=== PATIENT | female | born 1935 ===

== ENCOUNTER 2017-04-17 06:22 | Inpatient (IN) | payer MEDICARE, MEDICAID ==
[2017-04-17 06:22] VITALS: BMI 26.5
--- NOTE | 2017-04-17 06:43 | C.PDOC ---
History Of Present Illness 81 year old female presents to the ER with a complaint of pain to the left upper arm and lower back, associated with dysuria. Patient reports she fell 6 days ago, denies weakness or numbness. Chief Complaint (Nursing): Upper Extremity Problem/Injury History Per: Patient History/Exam Limitations: no limitations Onset/Duration Of Symptoms: Days Current Symptoms Are (Timing): Still Present Recent travel outside of the [place]: No Past Medical History Reviewed: Historical Data, Nursing Documentation, Vital Signs Vital Signs: Last Vital Signs Temp 97.8 F 04/17/17 06:29 Pulse 99 H 04/17/17 06:29 Resp 16 04/17/17 06:29 BP 209/82 H 04/17/17 06:29 Pulse Ox 100 04/17/17 06:48 - Medical History PMH: HTN Surgical History: No Surg Hx Family History: States: Unknown Family Hx - Social History Hx Alcohol Use: No Hx Substance Use: No - Immunization History Hx Tetanus Toxoid Vaccination: No Hx Influenza Vaccination: No Hx Pneumococcal Vaccination: No Review Of Systems Genitourinary: Positive for: Dysuria Musculoskeletal: Positive for: Arm Pain, Back Pain Neurological: Negative for: Weakness, Numbness Physical Exam - Physical Exam Appears: Non-toxic, No Acute Distress Skin: Normal Color, Warm, Dry Head: Atraumatic, Normacephalic Eye(s): bilateral: Normal Inspection Oral Mucosa: Moist Chest: Symmetrical, No Tenderness Cardiovascular: Rhythm Regular Respiratory: Normal Breath Sounds, No Accessory Muscle Use Gastrointestinal/Abdominal: Soft, No Tenderness Back: No Vertebral Tenderness, Paraspinal Tenderness (Lumbar and buttock area) Extremity: Tenderness (Left upper arm), No Deformity, Swelling (Left upper arm) Pulses: Left Radial: Normal, Right Radial: Normal Neurological/Psych: Oriented x3, Normal Speech, Normal Motor, Normal Sensation, Other (No focal deficits) ED Course And Treatment O2 Sat by Pulse Oximetry: 100 (Room air) Pulse Ox Interpretation: Normal Progress Note: LS spine x-ray, pelvis x-ray, urine culture, and urinalysis ordered. Disposition - Disposition Disposition Time: 07:00 Condition: STABLE Forms: [facility] ([place]) - Clinical Impression Clinical Impression: Lower back pain, Soft tissue injury of left upper arm - Scribe Statement The provider has reviewed the documentation as recorded by the Scribkristen Villatoro All medical record entries made by the Scribe were at my direction and personally dictated by me. I have reviewed the chart and agree that the record accurately reflects my personal performance of the history, physical exam, medical decision making, and the department course for this patient. I have also personally directed, reviewed, and agree with the discharge instructions and disposition.
[2017-04-17 08:33] LABS: RBC URINE 17 /hpf (0-3); URINE BACTERIA RARE (<OCC); URINE BILIRUBIN NEGATIVE (NEGATIVE); URINE BLOOD 1+ (NEGATIVE); URINE COLOR Yellow (YELLOW); URINE GLUCOSE (UA) NORMAL (Normal); URINE KETONE NEGATIVE (NEGATIVE); URINE LEUKOCYTE ESTERASE 2+ Leu/uL (Negative); URINE PROTEIN NEGATIVE (NEGATIVE); URINE UROBILINOGEN NORMAL mg/dL (0.2-1.0); WBC URINE 222 /hpf (0-5)
[2017-04-17] MEDS ORDERED: Sodium Chloride 0.9% 1,000 ML IV ONE (08:42)
[2017-04-17] MEDS ORDERED: cefTRIAXone IV 1 gm in Dextros 50 ML IV STA (08:44)
--- NOTE | 2017-04-17 09:13 | RAD ---
PROCEDURE: Radiographs of the Lumbar Spine. HISTORY: injury /pain COMPARISON: No prior. FINDINGS: BONES: Vertebral bodies are maintained in height. Transverse processes and posterior elements appear intact. There is grade 1 anterolisthesis at L5-S1. There is bilateral degenerative facet arthropathy at L5-S1. Normal alignment is maintained elsewhere. DISC SPACES: Unremarkable. OTHER FINDINGS: None. IMPRESSION: Grade 1 anterolisthesis at L5-S1 with bilateral degenerative facet arthropathy at L5-S1.
--- NOTE | 2017-04-17 09:14 | RAD ---
PROCEDURE: Radiographs of the pelvis. HISTORY: injury/ pain COMPARISON: None. FINDINGS: BONES: Pelvic Bones: There is suspected mildly displaced fracture of the left pubic symphysis and of the left inferior pubic ramus. Consider evaluation with computed tomography. No other fracture is identified. Hips: Grossly unremarkable. JOINTS: Sacroiliac Joints: Unremarkable. Pubic Symphysis: Unremarkable. OTHER FINDINGS: None. IMPRESSION: Suspected fracture left pubic symphysis and inferior pubic ramus. Consider further evaluation with computed tomography.
[2017-04-17] MEDS ORDERED: Sodium Chloride 0.9% 1,000 ML ONE (09:16)
--- NOTE | 2017-04-17 09:31 | RAD ---
PROCEDURE: CHEST RADIOGRAPH, 1 VIEW HISTORY: MED CLEAR COMPARISON: None available. FINDINGS: LUNGS: Clear. PLEURA: No pneumothorax or pleural fluid seen. CARDIOVASCULAR: Normal. OSSEOUS STRUCTURES: No significant abnormalities. VISUALIZED UPPER ABDOMEN: Normal. OTHER FINDINGS: None. IMPRESSION: No active disease.
[2017-04-17 09:34] LABS: BASO # 0.1 K/uL (0.0-0.2); BASO % 1.1 % (0.0-2.0); EOS # 0.1 K/uL (0.0-0.7); EOS % 0.9 % (0.0-4.0); HEMATOCRIT 32.1 % (34.0-47.0); LYMPH # 1.8 K/uL (1.0-4.3); LYMPH % 21.6 % (20.0-40.0); MEAN CELL VOLUME 87.4 fL (81.0-99.0); MEAN CORPUSCULAR HEMOGLOBIN 28.2 pg (27.0-31.0); MEAN CORPUSCULAR HGB CONC 32.3 g/dL (33.0-37.0); MONO # 0.6 K/uL (0.0-0.8); NRBC % 0.5 % (0.0-2.0); RED CELL DISTRIBUTION WIDTH 25.1 % (11.5-14.5); WHITE BLOOD COUNT 8.3 K/uL (4.8-10.8)
[2017-04-17 09:42] LABS: INR 1.1
[2017-04-17 09:55] LABS: BILIRUBIN,TOTAL 1.1 mg/dL (0.2-1.3); CALCIUM 8.5 mg/dl (8.6-10.4); GFR AFRICAN-AMERICAN > 60; GLUCOSE,RANDOM 91 mg/dL (65-105)
[2017-04-17 09:59] LABS: ALB/GLOB RATIO 1.1 (1.0-2.1); ALKALINE PHOSPHATASE 118 U/L (38-126); ALT/SGPT 33 U/L (9-52); AST/SGOT 55 U/L (14-36); BLOOD UREA NITROGEN 14 mg/dL (7-17); CARBON DIOXIDE 32 mmol/L (22-30); CHLORIDE 104 mmol/L (98-107); POTASSIUM 5.1 mmol/L (3.6-5.2); SODIUM 140 mmol/L (132-148)
--- NOTE | 2017-04-17 13:18 | CT ---
CT bony pelvis History: Pubic rami fractures. Comparison: X-ray dated 04/17/2017 Technique: Multiple contiguous axial images were performed through the bony pelvis without the use of intravenous contrast. Subsequently, sagittal and coronal reformatted images were obtained. Findings: Complex comminuted transverse oblique fracture deformity through the anterior superior left pubic bone near the pubic symphysis with superomedial distraction and displacement of a 1.9 centimeter fracture deformity at that level with some surrounding soft tissue swelling. Complex comminuted angulated fracture deformity of the mid inferior left pubic bone with angulation at the fracture site. Cortical irregularity with transverse oblique lucency seen at the inferior left iliac bone near the left SI joint as demonstrated on series 601 image 97 corresponding to series 5, image 29 concerning for a fracture deformity. More superiorly, at the level of the left SI joint, within the left iliac bone, there is an additional questionable cortical irregularity seen on series 601, image 89 also concerning for possible fracture deformity. Correlation with MRI is recommended for further evaluation if clinically indicated to better evaluate these regions. Patchy osteopenia in the left hemisacrum near the left SI joint. Subtle osseous injury at this level cannot entirely be excluded. Correlation with MRI may be helpful if clinically indicated. Prominent degenerative changes in the lower lumbar spine with prominent facet hypertrophy and sclerosis. Moderate degenerative changes of the bilateral hip joints with joint space narrowing and subchondral sclerosis. Partially calcified fibroid lesions noted within the uterus. Calcified phleboliths in the pelvis. Grade 1 anterolisthesis of L5 on S1. Bilateral hamstring origin tendinosis is noted. Impression: 1. Complex comminuted transverse oblique fracture deformity through the anterior superior left pubic bone near the pubic symphysis with superomedial distraction and displacement of a 1.9 centimeter fracture deformity at that level with some surrounding soft tissue swelling. 2. Complex comminuted angulated fracture deformity of the mid inferior left pubic bone with angulation at the fracture site. 3. Cortical irregularity with transverse oblique lucency seen at the inferior left iliac bone near the left SI joint as demonstrated on series 601 image 97 corresponding to series 5, image 29 concerning for a fracture deformity. More superiorly, at the level of the left SI joint, within the left iliac bone, there is additional questionable cortical irregularity seen on series 601, image 89 also concerning for possible fracture deformity. Correlation with MRI is recommended for further evaluation if clinically indicated to better evaluate these regions. 4. Patchy osteopenia in the left hemisacrum near the left SI joint. Subtle osseous injury at this level cannot entirely be excluded. Correlation with MRI may be helpful if clinically indicated. 5. Prominent degenerative changes in the lower lumbar spine with prominent facet hypertrophy and sclerosis. 6. Moderate degenerative changes of the bilateral hip joints with joint space narrowing and subchondral sclerosis. 7. Partially calcified fibroid lesions noted within the uterus. 8. Calcified phleboliths in the pelvis. 9. Grade 1 anterolisthesis of L5 on S1. 10. Bilateral hamstring origin tendinosis is noted.
--- NOTE | 2017-04-17 14:30 | CP.PCM.HP ---
History of Present Illness - History of Present Illness History of Present Illness: 81 year old female presents to the ER with a complaint of pain to the left upper arm and lower back, associated with dysuria. Patient reports she fell 6 days ago, denies weakness or numbness. Present on Admission - Present on Admission Any Indicators Present on Admission: No Review of Systems - Constitutional Constitutional: absent: As Per HPI, Anorexia, Chills, Daytime Sleepiness, Excessive Sweating, Fatigue, Fever, Frequent Falls, Headache, Increased Appetite , Lethargy, Malaise, Night Sweats, Snoring, Sleep Apnea, Weight Gain, Weight Loss, Weakness, Other - EENT Eyes: absent: As Per HPI, Blind Spots, Blurred Vision, Change in Vision, Decreased Night Vision, Diplopia, Discharge, Dry Eye, Exophthalmos, Floaters, Irritation, Itchy Eyes, Loss of Peripheral Vision, Pain, Photophobia, Requires Corrective Lenses, Sees Flashes, Spots in Vision, Tunnel Vision, Other Visual Disturbances, Loss of Vision, Other Nose/Mouth/Throat: absent: As Per HPI, Epistaxis, Nasal Congestion, Nasal Discharge, Nasal Obstruction, Nasal Trauma, Nose Pain, Post Nasal Drip, Sinus Pain, Sinus Pressure, Bleeding Gums, Change in Voice, Dental Pain, Dry Mouth, Dysphagia, Halitosis, Hoarsness, Lip Swelling, Mouth Lesions, Mouth Pain, Odynophagia, Sore Throat, Throat Swelling, Tongue Swelling, Facial Pain, Neck Pain, Neck Mass, Other - Breasts Breasts: absent: As Per HPI, Change in Shape, Mass, Pain, Nipple Discharge, Nipple Inversion, Skin Changes, Swelling, Other - Cardiovascular Cardiovascular: absent: As Per HPI, Acrocyanosis, Chest Pain, Chest Pain at Rest , Chest Pain with Activity, Claudication, Diaphoresis, Dyspnea, Dyspnea on Exertion, Edema, Irregular Heart Rhythm, Pain Radiating to Arm/Neck/Jaw, Leg Edema, Leg Ulcers, Lightheadedness, Orthopnea, Palpitations, Paroxysmal Nocturnal Dyspnea, Pedal Edema, Radiating Pain, Rapid Heart Rate, Slow Heart Rate, Syncope, Other - Respiratory Respiratory: absent: As Per HPI, Cough, Dyspnea, Hemoptysis, Dyspnea on Exertion , Wheezing, Snoring, Stridor, Pain on Inspiration, Chest Congestion, Excessive Mucous Production, Change in Mucous Color, Pain with Coughing, Other - Gastrointestinal Gastrointestinal: absent: As Per HPI, Abdominal Pain, Belching, Bloating, Change in Bowel Habits, Change in Stool Character, Coffee Ground Emesis, Constipation, Cramping, Diarrhea, Dyspepsia, Dysphagia, Early Satiety, Excessive Flatus, Fecal Incontinence, Heartburn, Hematemesis, Hematochezia, Loose Stools, Melena, Nausea, Odynophagia, Temesmus, Vomiting, Other - Musculoskeletal Musculoskeletal: Back Pain, Muscle Cramps, Muscle Weakness Past Patient History - Past Social History Smoking Status: Never Smoked - CARDIAC Hx Hypertension: Yes - PSYCHIATRIC Hx Substance Use: No Meds Home Medications: Home Medication List Medication Instructions Recorded Confirmed Type Ciprofloxacin [Cipro] 500 mg PO BID 5 Days tab 04/21/17 Rx traMADol [Ultram] 25 mg PO Q8 PRN 5 Days tab 04/21/17 Rx Allergies/Adverse Reactions: Allergies Allergy/AdvReac Type Severity Reaction Status Date / Time No Known Allergies Allergy Verified 04/17/17 06:31 Physical Exam - Head Exam Head Exam: ATRAUMATIC, NORMAL INSPECTION, NORMOCEPHALIC - Eye Exam Eye Exam: EOMI, Normal appearance, PERRL - Neck Exam Neck exam: Positive for: Normal Inspection - Respiratory Exam Respiratory Exam: Clear to Auscultation Bilateral, NORMAL BREATHING PATTERN - GI/Abdominal Exam GI & Abdominal Exam: Normal Bowel Sounds, Soft. absent: Tenderness - Extremities Exam Extremities exam: Positive for: full ROM, tenderness. Negative for: calf tenderness, pedal edema - Back Exam Back exam: paraspinal tenderness - Neurological Exam Neurological exam: Motor Sensory Deficit, Oriented x3 Results - Vital Signs Recent Vital Signs: Last Vital Signs Temp 98 F 04/17/17 12:27 Pulse 82 04/17/17 12:27 Resp 18 04/17/17 12:27 BP 137/65 04/17/17 12:27 Pulse Ox 98 04/17/17 12:27 - Labs Result Diagrams: 04/19/17 07:18 04/19/17 07:18 Labs: Laboratory Results - last 24 hr 04/17/17 04/17/17 04/17/17 08:07 09:29 09:29 WBC 8.3 RBC 3.68 L Hgb 10.4 L Hct 32.1 L MCV 87.4 MCH 28.2 MCHC 32.3 L RDW 25.1 H Plt Count 397 MPV 9.0 Neut % (Auto) 69.4 Lymph % (Auto) 21.6 [place] % (Auto) 7.0 Eos % (Auto) 0.9 Baso % (Auto) 1.1 Neut # 5.7 Lymph # 1.8 [place] # 0.6 Eos # 0.1 Baso # 0.1 PT 12.6 H INR 1.1 APTT 29 Sodium Potassium Chloride Carbon Dioxide Anion Gap BUN Creatinine Est GFR ( Amer) Est GFR (Non-Af Amer) Random Glucose Calcium Total Bilirubin AST ALT Alkaline Phosphatase Total Protein Albumin Globulin Albumin/Globulin Ratio Urine Color Yellow Urine Clarity Clear Urine pH 7.0 Ur Specific [place] 1.016 Urine Protein Negative Urine Glucose (UA) Normal Urine Ketones Negative Urine Blood 1+ H Urine Nitrate Negative Urine Bilirubin Negative Urine Urobilinogen Normal Ur Leukocyte Esterase 2+ H Urine WBC (Auto) 222 H Urine RBC (Auto) 17 H Ur Squamous Epith Cells 1 Urine Bacteria Rare Blood Type Antibody Screen 04/17/17 04/17/17 09:29 09:29 WBC RBC Hgb Hct MCV MCH MCHC RDW Plt Count MPV Neut % (Auto) Lymph % (Auto) [place] % (Auto) Eos % (Auto) Baso % (Auto) Neut # Lymph # [place] # Eos # Baso # PT INR APTT Sodium 140 Potassium 5.1 Chloride 104 Carbon Dioxide 32 H Anion Gap 10 BUN 14 Creatinine 0.8 Est GFR ( Amer) > 60 Est GFR (Non-Af Amer) > 60 Random Glucose 91 Calcium 8.5 L Total Bilirubin 1.1 AST 55 H ALT 33 Alkaline Phosphatase 118 Total Protein 8.0 Albumin 4.3 Globulin 3.7 Albumin/Globulin Ratio 1.1 Urine Color Urine Clarity Urine pH Ur Specific [place] Urine Protein Urine Glucose (UA) Urine Ketones Urine Blood Urine Nitrate Urine Bilirubin Urine Urobilinogen Ur Leukocyte Esterase Urine WBC (Auto) Urine RBC (Auto) Ur Squamous Epith Cells Urine Bacteria Blood Type A POSITIVE Antibody Screen Negative Assessment & Plan (1) Lower back pain Status: Acute (2) Soft tissue injury of left upper arm Status: Acute (3) Closed fracture of left inferior pubic ramus Status: Acute (4) Closed fracture of left superior pubic ramus Status: Acute (5) Fracture of sacrum Status: Acute (6) Hypertension Status: Acute
--- NOTE | 2017-04-17 16:17 | CP.PCM.CON ---
History of Present Illness - History of Present Illness History of Present Illness: Orthopedic consultation Dr. Perrin 81F complains of left groin pain after fall at home. She also complains of left shoulder pain at this time. She denies any CP/SOb/dizziness preceding fall. She denies any head or neck pain, denies back pain. Denies pain in legs. She ambulates with walker at baseline. She lives alone in elevator building. Denies numbness/tingling. No recent cough or cold. C/o dry throat and phlegm. Denies cough. Review of Systems - Review of Systems All systems: reviewed and no additional remarkable complaints except - Constitutional Constitutional: As Per HPI - Cardiovascular Cardiovascular: As Per HPI - Respiratory Respiratory: As Per HPI - Musculoskeletal Musculoskeletal: As Per HPI - Neurological Neurological: As Per HPI - Hematologic/Lymphatic Hematologic: absent: As Per HPI, Easy Bleeding, Easy Bruising, Lymphadenopathy, Other Past Patient History - Past Medical History & Family History Past Medical History?: Yes Past Family History: Reviewed and not pertinent - Past Social History Smoking Status: Never Smoked - CARDIAC Hx Cardiac Disorders: Yes Hx Hypertension: Yes - PSYCHIATRIC Hx Substance Use: No Meds Allergies/Adverse Reactions: Allergies Allergy/AdvReac Type Severity Reaction Status Date / Time No Known Allergies Allergy Verified 04/17/17 06:31 - Medications Medications: Current Medications Sodium Chloride (Sodium Chloride 0.9%) 1,000 mls @ 100 mls/hr IV .Q10H ONE Stop: 04/17/17 18:41 Last Admin: 04/17/17 09:33 Dose: 100 mls/hr Physical Exam - Constitutional Appears: Well, No Acute Distress - Head Exam Head Exam: ATRAUMATIC - Neck Exam Neck exam: Positive for: Full Rom, Normal Inspection - Respiratory Exam Respiratory Exam: NORMAL BREATHING PATTERN - Cardiovascular Exam Additional comments: +radial pulse +DP/PT pulses calves soft NT neg homans - Extremities Exam Additional comments: RLE/RUE no swelling/discoloration/deformity. Full ROM, NVID - Expanded Upper Extremities Exam Left Shoulder exam: full ROM (but complains of pain at end flexion/abduction, ttp to posterior shuolder/upper arm. No swelling, deformity, discoloration) Forearm Wrist exam: ecchymosis, tenderness Neuro motor exam: finger 2-5 abduction intact, thumb abduction, thumb IP flexion intact, thumb opposition intact, wrist extension intact Neurosensory exam: median nerve intact, radial nerve intact, ulnar nerve intact Vascular exam: radial pulse - Expanded Lower Extremities Exam Left Hip exam: tenderness (tenderness to pubic bone and ischium. Mild pain with range of motion of left hip actively, no pain with log roll. RLE full ROM hip/ kknee without pain) Knee exam: full ROM, normal inspection Ankle exam: FULL ROM, NORMAL INSPECTION Neuro vacular tendon exam: no vascular compromise - Back Exam Additional comments: mild tenderness to left SI joint no pain with AP/lat compression distraction of pelvis, no instability noted - Neurological Exam Neurological exam: Alert, Oriented x3 - Psychiatric Exam Psychiatric exam: Normal Affect, Normal Mood - Skin Skin Exam: Dry, Intact, Warm Additional comments: ecchymosis to dorsum of left hand, minimally tender to touch Results - Vital Signs Recent Vital Signs: Last Vital Signs Temp 98 F 04/17/17 12:27 Pulse 82 04/17/17 12:27 Resp 18 04/17/17 12:27 BP 137/65 04/17/17 12:27 Pulse Ox 98 04/17/17 12:27 - Labs Result Diagrams: 04/17/17 09:29 04/17/17 09:29 Labs: Laboratory Results - last 24 hr 04/17/17 04/17/17 04/17/17 08:07 09:29 09:29 WBC 8.3 RBC 3.68 L Hgb 10.4 L Hct 32.1 L MCV 87.4 MCH 28.2 MCHC 32.3 L RDW 25.1 H Plt Count 397 MPV 9.0 Neut % (Auto) 69.4 Lymph % (Auto) 21.6 Mckenzie % (Auto) 7.0 Eos % (Auto) 0.9 Baso % (Auto) 1.1 Neut # 5.7 Lymph # 1.8 Mckenzie # 0.6 Eos # 0.1 Baso # 0.1 PT 12.6 H INR 1.1 APTT 29 Sodium Potassium Chloride Carbon Dioxide Anion Gap BUN Creatinine Est GFR ( Amer) Est GFR (Non-Af Amer) Random Glucose Calcium Total Bilirubin AST ALT Alkaline Phosphatase Total Protein Albumin Globulin Albumin/Globulin Ratio Urine Color Yellow Urine Clarity Clear Urine pH 7.0 Ur Specific [place] 1.016 Urine Protein Negative Urine Glucose (UA) Normal Urine Ketones Negative Urine Blood 1+ H Urine Nitrate Negative Urine Bilirubin Negative Urine Urobilinogen Normal Ur Leukocyte Esterase 2+ H Urine WBC (Auto) 222 H Urine RBC (Auto) 17 H Ur Squamous Epith Cells 1 Urine Bacteria Rare Blood Type Antibody Screen 04/17/17 04/17/17 09:29 09:29 WBC RBC Hgb Hct MCV MCH MCHC RDW Plt Count MPV Neut % (Auto) Lymph % (Auto) Mckenzie % (Auto) Eos % (Auto) Baso % (Auto) Neut # Lymph # Mckenzie # Eos # Baso # PT INR APTT Sodium 140 Potassium 5.1 Chloride 104 Carbon Dioxide 32 H Anion Gap 10 BUN 14 Creatinine 0.8 Est GFR ( Amer) > 60 Est GFR (Non-Af Amer) > 60 Random Glucose 91 Calcium 8.5 L Total Bilirubin 1.1 AST 55 H ALT 33 Alkaline Phosphatase 118 Total Protein 8.0 Albumin 4.3 Globulin 3.7 Albumin/Globulin Ratio 1.1 Urine Color Urine Clarity Urine pH Ur Specific [place] Urine Protein Urine Glucose (UA) Urine Ketones Urine Blood Urine Nitrate Urine Bilirubin Urine Urobilinogen Ur Leukocyte Esterase Urine WBC (Auto) Urine RBC (Auto) Ur Squamous Epith Cells Urine Bacteria Blood Type A POSITIVE Antibody Screen Negative Assessment & Plan (1) Closed fracture of left superior pubic ramus Assessment and Plan: non operative protected WB due to displacement of fractures PT/OT VTE proph, defer to [facility] ordered patient states she does not want rehab placement, but explained to patient risk of falls and will reevaluate after PT. patient agrees to plan f/u labs in am xrays left hand and shoulder d/w Dr. Perrin, agrees with above Status: Acute (2) Closed fracture of left inferior pubic ramus Status: Acute (3) Fracture of sacrum Assessment and Plan: small fracture at inferior SI joint appreciated Status: Acute (4) UTI (urinary tract infection) Assessment and Plan: on admission rocephin given in ER defer mgmt to Dr. Melchor urine cx pending Status: Acute Radiology Interpretation - Radiology Interpretation #2 Interpretation: Patient Name / ID : JESSICA QUINN / [id number] Exam Date : 04/17/2017 12:08:59 ( Approved ) Study Comment : Sex / Age : F / 81Y Creator : Constantine Vaughan MD Dictator : Constantine Vaughan MD Pure Culture Operator : Research Asst : Constantine Vaughan MD Approver2 : Report Date : 04/17/2017 13:17:06 My Comment : CT bony pelvis History: Pubic rami fractures. Comparison: X-ray dated 04/17/2017 Technique: Multiple contiguous axial images were performed through the bony pelvis without the use of intravenous contrast. Subsequently, sagittal and coronal reformatted images were obtained. Findings: Complex comminuted transverse oblique fracture deformity through the anterior superior left pubic bone near the pubic symphysis with superomedial distraction and displacement of a 1.9 centimeter fracture deformity at that level with some surrounding soft tissue swelling. Complex comminuted angulated fracture deformity of the mid inferior left pubic bone with angulation at the fracture site. Cortical irregularity with transverse oblique lucency seen at the inferior left iliac bone near the left SI joint as demonstrated on series 601 image 97 corresponding to series 5, image 29 concerning for a fracture deformity. More superiorly, at the level of the left SI joint, within the left iliac bone, there is an additional questionable cortical irregularity seen on series 601, image 89 also concerning for possible fracture deformity. Correlation with MRI is recommended for further evaluation if clinically indicated to better evaluate these regions. Patchy osteopenia in the left hemisacrum near the left SI joint. Subtle osseous injury at this level cannot entirely be excluded. Correlation with MRI may be helpful if clinically indicated. Prominent degenerative changes in the lower lumbar spine with prominent facet hypertrophy and sclerosis. Moderate degenerative changes of the bilateral hip joints with joint space narrowing and subchondral sclerosis. Partially calcified fibroid lesions noted within the uterus. Calcified phleboliths in the pelvis. Grade 1 anterolisthesis of L5 on S1. Bilateral hamstring origin tendinosis is noted. Impression: 1. Complex comminuted transverse oblique fracture deformity through the anterior superior left pubic bone near the pubic symphysis with superomedial distraction and displacement of a 1.9 centimeter fracture deformity at that level with some surrounding soft tissue swelling. 2. Complex comminuted angulated fracture deformity of the mid inferior left pubic bone with angulation at the fracture site. 3. Cortical irregularity with transverse oblique lucency seen at the inferior left iliac bone near the left SI joint as demonstrated on series 601 image 97 corresponding to series 5, image 29 concerning for a fracture deformity. More superiorly, at the level of the left SI joint, within the left iliac bone, there is additional questionable cortical irregularity seen on series 601, image 89 also concerning for possible fracture deformity. Correlation with MRI is recommended for further evaluation if clinically indicated to better evaluate these regions. 4. Patchy osteopenia in the left hemisacrum near the left SI joint. Subtle osseous injury at this level cannot entirely be excluded. Correlation with MRI may be helpful if clinically indicated. 5. Prominent degenerative changes in the lower lumbar spine with prominent facet hypertrophy and sclerosis. 6. Moderate degenerative changes of the bilateral hip joints with joint space narrowing and subchondral sclerosis. 7. Partially calcified fibroid lesions noted within the uterus. 8. Calcified phleboliths in the pelvis. 9. Grade 1 anterolisthesis of L5 on S1. 10. Bilateral hamstring origin tendinosis is noted. atient Name / ID : JESSICA QUINN / [id number] Exam Date : 04/17/2017 06:53:06 ( Approved ) Study Comment : Sex / Age : F / 81Y Creator : Tanvir Ibarra MD Dictator : Tanvir Ibarra MD Pure Culture Operator : Research Asst : Tavnir Ibarra MD Approver2 : Report Date : 04/17/2017 09:11:13 My Comment : PROCEDURE: Radiographs of the Lumbar Spine. HISTORY: injury /pain COMPARISON: No prior. FINDINGS: BONES: Vertebral bodies are maintained in height. Transverse processes and posterior elements appear intact. There is grade 1 anterolisthesis at L5-S1. There is bilateral degenerative facet arthropathy at L5-S1. Normal alignment is maintained elsewhere. DISC SPACES: Unremarkable. OTHER FINDINGS: None. IMPRESSION: Grade 1 anterolisthesis at L5-S1 with bilateral degenerative facet arthropathy at L5-S1. atient Name / ID : JESSICA QUINN / [id number] Exam Date : 04/17/2017 06:45:22 ( Approved ) Study Comment : Sex / Age : F / 81Y Creator : Tanvir Ibarra MD Dictator : Tanvir Ibarra MD Pure Culture Operator : Research Asst : Tanvir Ibarra MD Approver2 : Report Date : 04/17/2017 09:12:46 My Comment : PROCEDURE: Radiographs of the pelvis. HISTORY: injury/ pain COMPARISON: None. FINDINGS: BONES: Pelvic Bones: There is suspected mildly displaced fracture of the left pubic symphysis and of the left inferior pubic ramus. Consider evaluation with computed tomography. No other fracture is identified. Hips: Grossly unremarkable. JOINTS: Sacroiliac Joints: Unremarkable. Pubic Symphysis: Unremarkable. OTHER FINDINGS: None. IMPRESSION: Suspected fracture left pubic symphysis and inferior pubic ramus. Consider further evaluation with computed tomography.
[2017-04-17] MEDS ORDERED: Pneumococcal 23-Valent Vaccine IM ONE (21:00)
[2017-04-17] MEDS ORDERED: Influenza Vaccine 60 mcg/0.5 mL SYR (4YR UP) IM ONE (21:03)
[2017-04-18 08:03] LABS: HEMATOCRIT 31.4 % (34.0-47.0); MEAN CELL VOLUME 87.3 fL (81.0-99.0); MEAN CORPUSCULAR HEMOGLOBIN 27.6 pg (27.0-31.0); MEAN CORPUSCULAR HGB CONC 31.6 g/dL (33.0-37.0); MEAN PLATELET VOLUME 9.4 fL (7.2-11.7); RED CELL DISTRIBUTION WIDTH 25.3 % (11.5-14.5); WHITE BLOOD COUNT 5.9 K/uL (4.8-10.8)
[2017-04-18 08:29] LABS: BLOOD UREA NITROGEN 11 mg/dL (7-17); CARBON DIOXIDE 29 mmol/L (22-30); CHLORIDE 105 mmol/L (98-107); GFR AFRICAN-AMERICAN > 60; GLUCOSE,RANDOM 85 mg/dL (65-105); POTASSIUM 3.8 mmol/L (3.6-5.2); SODIUM 140 mmol/L (132-148)
--- NOTE | 2017-04-18 08:55 | RAD ---
PROCEDURE: Left Hand Radiographs. HISTORY: pain, ecchymosis, s/p fall COMPARISON: None. FINDINGS: BONES: Mild -3 5th metatarsal head osseous hypertrophic arthropathic changes noted -per oblique view. Minimal spurring degenerative changes 1st carpal metacarpal joint. . No fracture. Normal bone mineralization. No erosions seen JOINTS: Mild osteoarthritic changes. SOFT TISSUES: Normal. OTHER FINDINGS: None. IMPRESSION: No fracture. Mild senescent arthropathic changes
--- NOTE | 2017-04-18 08:58 | RAD ---
PROCEDURE: Radiographs of the Left Shoulder HISTORY: pain, fall COMPARISON: No prior. FINDINGS: BONES: No fracture. Bone mineralization normal JOINTS: Glenohumeral and acromioclavicular mild hypertrophic osteoarthritis with intervening joint space narrowing. SOFT TISSUES: Normal. OTHER FINDINGS: None. IMPRESSION: No fracture or dislocation. . Arthrosis
[2017-04-18] MEDS ORDERED: Enoxaparin 40 mg Syringe SC SCH (10:00)
--- NOTE | 2017-04-18 12:11 | CP.PCM.PN ---
Subjective - Date & Time of Evaluation Date of Evaluation: 04/18/17 Time of Evaluation: 13:46 - Subjective Subjective: Patient complaining of pain all over her body today. She says that she had PT today and they told her she did very well. No new specific complaints of pain. Denies numbness/tingling/CP/SOB/dizziness. Review of Systems - Review of Systems All systems: reviewed and no additional remarkable complaints except - EENT Nose/Mouth/Throat: UNREMARKABLE - Cardiovascular Cardiovascular: As Per HPI - Respiratory Respiratory: As Per HPI - Gastrointestinal Gastrointestinal: UNREMARKABLE - Genitourinary Genitourinary: UNREMARKABLE - Musculoskeletal Musculoskeletal: As Par HPI - Integumentary Integumentary: As Per HPI - Neurological Neurological: As Per HPI, UNREMARKABLE - Hematologic/Lymphatic Hematologic: UNREMARKABLE Objective - Vital Signs/Intake and Output Vital Signs (last 24 hours): Temp Pulse Resp BP Pulse Ox 98.2 F 61 20 154/69 H 97 04/18/17 08:55 04/18/17 08:55 04/18/17 08:55 04/18/17 08:55 04/18/17 08:55 Intake and Output: 04/18/17 04/18/17 06:59 18:59 Output Total 100 Balance -100 - Labs Labs: 04/18/17 07:52 04/18/17 07:52 PT 12.6 SECONDS (9.7-12.2) H 04/17/17 09:29 INR 1.1 04/17/17 09:29 APTT 29 SECONDS (21-34) 04/17/17 09:29 - Constitutional Appears: Well, No Acute Distress - Head Exam Head Exam: ATRAUMATIC - Neck Exam Neck Exam: Full ROM, Normal Inspection - Respiratory Exam Respiratory Exam: NORMAL BREATHING PATTERN - Cardiovascular Exam Additional comments: +DP pulse LLE, +Radial pulse RUE - Extremities Exam Additional comments: LLE: +ROM ankle/toes, sensation intact, calves soft NT neg homans LUE: no swelling/deformity/discoloration, still sore - Neurological Exam Neurological Exam: Alert, Awake, Oriented x3 Neuro motor strength exam: Left Upper Extremity: 5, Left Lower Extremity: 5 - Psychiatric Exam Psychiatric exam: Normal Affect, Normal Mood - Skin Skin Exam: Dry, Intact, Warm Additional comments: no change to ecchymosis left dorsum of hand Assessment and Plan (1) Closed fracture of left superior pubic ramus Assessment & Plan: non operative PT/OT VTE proph monitor h/h, expect some drop from fx d/c planning walker ambulation d/w Dr. Perrin, agrees with above Status: Acute (2) Closed fracture of left inferior pubic ramus Status: Acute (3) Fracture of sacrum Status: Acute (4) UTI (urinary tract infection) Assessment & Plan: gram neg cat prelim Status: Acute Radiology Interpretation - Clamp Truck Driver Clamp Truck Driver:: Radiologist - Radiology Interpretation #2 Interpretation: atient Name / ID : JESSICA QUINN / [id number] Exam Date : 04/17/2017 16:58:13 ( Approved ) Study Comment : Sex / Age : F / 81Y Creator : Marquita Dutton Dictator : Marquita Dutton Groundsman : Needle Punch Operator : Marquita Dutton Approver2 : Report Date : 04/18/2017 08:57:03 My Comment : PROCEDURE: Radiographs of the Left Shoulder HISTORY: pain, fall COMPARISON: No prior. FINDINGS: BONES: No fracture. Bone mineralization normal JOINTS: Glenohumeral and acromioclavicular mild hypertrophic osteoarthritis with intervening joint space narrowing. SOFT TISSUES: Normal. OTHER FINDINGS: None. IMPRESSION: No fracture or dislocation. . Arthrosis - Radiology Interpretation #3 Interpretation: Patient Name / ID : JESSICA QUINN / [id number] Exam Date : 04/17/2017 16:53:23 ( Approved ) Study Comment : Sex / Age : F / 81Y Creator : Marquita Dutton Dictator : Marquita Dutton Groundsman : Needle Punch Operator : Marquita Dutton Approver2 : Report Date : 04/18/2017 08:53:47 My Comment : PROCEDURE: Left Hand Radiographs. HISTORY: pain, ecchymosis, s/p fall COMPARISON: None. FINDINGS: BONES: Mild -3 5th metatarsal head osseous hypertrophic arthropathic changes noted - per oblique view. Minimal spurring degenerative changes 1st carpal metacarpal joint. . No fracture. Normal bone mineralization. No erosions seen JOINTS: Mild osteoarthritic changes. SOFT TISSUES: Normal. OTHER FINDINGS: None. IMPRESSION: No fracture. Mild senescent arthropathic changes
--- NOTE | 2017-04-18 13:24 | CP.PCM.PN ---
Subjective - Date & Time of Evaluation Date of Evaluation: 04/18/17 Time of Evaluation: 13:22 - Subjective Subjective: CHIEF COMPLAINTS TODAY : PAIN IN LEFT HIP AREA ROS. HEENT : N. Resp : No cough, wheezing ,pleuritic CP ,or hemoptysis Cardio : No anginal CP, PND, orthopnea, palpitation GI : No abd.pain, n/v ,diarrhea or GI bleeding . 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 Musculoskel : No joint swelling , Derm : No rash Psych : Normal affect. Ext : No swelling ,calf pain PE. Pt. is alert awake in no distress. V.S As noted in the chart Head ,ear nose,throat and eyes : Normal. Neck : Supple with normal carotids. Lungs: Clear air entry. Heart : S1 & S2 normal with S4. No murmur. Abd : Soft non tender with normal bowel sounds. Neuro : Moves all ext. with no localized deficit. Ext : No edema with intact pulses.Non tender calves TENDERNESS LEFT HIP AREA LEFT SHOULDER , PAINFUL ROM Derm : No rashes or decubitus ulcer. LABS/RADIOLOGY: ASSESSMENT/PLAN : SUPPORTIVE RX SHORT TERM REHAB Objective - Vital Signs/Intake and Output Vital Signs (last 24 hours): Temp Pulse Resp BP Pulse Ox 98.2 F 61 20 154/69 H 97 04/18/17 08:55 04/18/17 08:55 04/18/17 08:55 04/18/17 08:55 04/18/17 08:55 Intake and Output: 04/18/17 04/18/17 11:59 23:59 Intake Total 240 Balance 240 - Labs Labs: 04/18/17 07:52 04/18/17 07:52 PT 12.6 SECONDS (9.7-12.2) H 04/17/17 09:29 INR 1.1 04/17/17 09:29 APTT 29 SECONDS (21-34) 04/17/17 09:29 Assessment and Plan (1) Lower back pain Status: Acute (2) Soft tissue injury of left upper arm Status: Acute
[2017-04-18] MEDS: Tramadol 25 mg PO PRN (16:28)
--- NOTE | 2017-04-18 21:57 | CARD ---
APPROVED REPORT EKG Measurement Heart [id number] <Conclusion> Normal sinus rhythm Minimal voltage criteria for LVH, may be normal variant Borderline ECG
[2017-04-18] MEDS: Pantoprazole 40 mg EC Tab PO SCH (22:30)
[2017-04-19 07:57] LABS: BLOOD UREA NITROGEN 14 mg/dL (7-17); CALCIUM 8.5 mg/dl (8.6-10.4); CARBON DIOXIDE 26 mmol/L (22-30); CHLORIDE 103 mmol/L (98-107); GFR AFRICAN-AMERICAN > 60; GLUCOSE,RANDOM 87 mg/dL (65-105); MEAN CELL VOLUME 87.1 fL (81.0-99.0); MEAN CORPUSCULAR HEMOGLOBIN 27.4 pg (27.0-31.0); MEAN CORPUSCULAR HGB CONC 31.5 g/dL (33.0-37.0); MEAN PLATELET VOLUME 9.3 fL (7.2-11.7); POTASSIUM 4.2 mmol/L (3.6-5.2); RED CELL DISTRIBUTION WIDTH 25.3 % (11.5-14.5); SODIUM 140 mmol/L (132-148); WHITE BLOOD COUNT 6.6 K/uL (4.8-10.8)
[2017-04-19 08:11] VITALS: RESP 20
[2017-04-19] MEDS: Tramadol 25 mg PO PRN ×2 (09:34→19:17)
[2017-04-19] MEDS: Pantoprazole 40 mg EC Tab PO SCH (09:35)
--- NOTE | 2017-04-19 11:55 | CP.PCM.PN ---
Subjective - Date & Time of Evaluation Date of Evaluation: 04/19/17 Time of Evaluation: 11:53 - Subjective Subjective: Patient with continued body aches and left groin pain. Left shoulder is still painful as well. Denies CP/SOB/dizziness/numbness/tingling. Agrees to rehab placement Review of Systems - Review of Systems All systems: reviewed and no additional remarkable complaints except - Cardiovascular Cardiovascular: As Per HPI - Respiratory Respiratory: As Per HPI - Gastrointestinal Gastrointestinal: As Per HPI - Musculoskeletal Musculoskeletal: As Par HPI - Integumentary Integumentary: UNREMARKABLE - Neurological Neurological: As Per HPI - Hematologic/Lymphatic Hematologic: UNREMARKABLE Objective - Vital Signs/Intake and Output Vital Signs (last 24 hours): Temp Pulse Resp BP Pulse Ox 97.9 F 74 20 124/56 L 97 04/19/17 07:00 04/19/17 09:35 04/19/17 07:00 04/19/17 09:35 04/19/17 07:00 - Medications Medications: Current Medications Amlodipine Besylate (Norvasc) 5 mg PO DAILY [facility] Last Admin: 04/19/17 09:35 Dose: 5 mg Ceftriaxone Sodium 1 gm/ (Sodium Chloride) 100 mls @ 100 mls/hr IVPB Q24H [facility] Stop: 04/19/17 23:59 Last Admin: 04/18/17 23:32 Dose: 100 mls/hr Pantoprazole Sodium (Protonix Ec Tab) 40 mg PO DAILY [facility] Last Admin: 04/19/17 09:35 Dose: 40 mg Tramadol HCl (Ultram) 25 mg PO Q8 PRN PRN Reason: Pain, moderate (4-7) Last Admin: 04/19/17 09:34 Dose: 25 mg - Labs Labs: 04/19/17 07:18 04/19/17 07:18 PT 12.6 SECONDS (9.7-12.2) H 04/17/17 09:29 INR 1.1 04/17/17 09:29 APTT 29 SECONDS (21-34) 04/17/17 09:29 - Constitutional Appears: Well, No Acute Distress - Head Exam Head Exam: ATRAUMATIC - Respiratory Exam Respiratory Exam: NORMAL BREATHING PATTERN - Cardiovascular Exam Additional comments: +DP/PT pulses +Radial pulses - Extremities Exam Additional comments: Left shoulder: still painful to palpation, but mild end range of fflex/abd painful sensation intact LLE: +ROM ankle/toes, sensation intact, calves soft NT neg homans - Neurological Exam Neurological Exam: Alert, Awake, Oriented x3 Neuro motor strength exam: Left Upper Extremity: 5, Left Lower Extremity: 5 - Psychiatric Exam Psychiatric exam: Normal Affect, Normal Mood - Skin Skin Exam: Dry, Intact, Normal Color, Warm Assessment and Plan (1) Closed fracture of left superior pubic ramus Assessment & Plan: non operative PT/OT TTWB VTE proph d/c planning to [facility] d/w Dr. Perrin, agrees with above Status: Acute (2) Closed fracture of left inferior pubic ramus Status: Acute (3) Fracture of sacrum Status: Acute (4) UTI (urinary tract infection) Assessment & Plan: E. coli sensitive to rocephin Status: Acute
--- NOTE | 2017-04-19 13:30 | CP.PCM.PN ---
Subjective - Date & Time of Evaluation Date of Evaluation: 04/19/17 Time of Evaluation: 13:29 - Subjective Subjective: CHIEF COMPLAINTS TODAY : PAIN IN LEFT HIP AREA ROS. HEENT : N. Resp : No cough, wheezing ,pleuritic CP ,or hemoptysis Cardio : No anginal CP, PND, orthopnea, palpitation GI : No abd.pain, n/v ,diarrhea or GI bleeding . 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 Musculoskel : No joint swelling , Derm : No rash Psych : Normal affect. Ext : No swelling ,calf pain PE. Pt. is alert awake in no distress. V.S As noted in the chart Head ,ear nose,throat and eyes : Normal. Neck : Supple with normal carotids. Lungs: Clear air entry. Heart : S1 & S2 normal with S4. No murmur. Abd : Soft non tender with normal bowel sounds. Neuro : Moves all ext. with no localized deficit. Ext : No edema with intact pulses.Non tender calves TENDERNESS LEFT HIP AREA LEFT SHOULDER , PAINFUL ROM Derm : No rashes or decubitus ulcer. LABS/RADIOLOGY: URINE E.COLI SEN TO [place] ASSESSMENT/PLAN : SUPPORTIVE RX SHORT TERM REHAB ID EVAL FOR UTI AB DURATION Objective - Vital Signs/Intake and Output Vital Signs (last 24 hours): Temp Pulse Resp BP Pulse Ox 97.9 F 74 20 124/56 L 97 04/19/17 07:00 04/19/17 09:35 04/19/17 07:00 04/19/17 09:35 04/19/17 07:00 - Medications Medications: Current Medications Amlodipine Besylate (Norvasc) 5 mg PO DAILY [facility] Last Admin: 04/19/17 09:35 Dose: 5 mg Ceftriaxone Sodium 1 gm/ (Sodium Chloride) 100 mls @ 100 mls/hr IVPB Q24H [facility] Stop: 04/19/17 23:59 Last Admin: 04/18/17 23:32 Dose: 100 mls/hr Pantoprazole Sodium (Protonix Ec Tab) 40 mg PO DAILY [facility] Last Admin: 04/19/17 09:35 Dose: 40 mg Tramadol HCl (Ultram) 25 mg PO Q8 PRN PRN Reason: Pain, moderate (4-7) Last Admin: 04/19/17 09:34 Dose: 25 mg - Labs Labs: 04/19/17 07:18 12/06/17 07:18 PT 12.6 SECONDS (9.7-12.2) H 04/17/17 09:29 INR 1.1 04/17/17 09:29 APTT 29 SECONDS (21-34) 04/17/17 09:29 Assessment and Plan (1) Lower back pain Status: Acute (2) Soft tissue injury of left upper arm Status: Acute
[2017-04-19] MEDS ORDERED: Alum-Mag Hydrox-Simethicone Susp (30 mL) PO ONE (16:00)
--- NOTE | 2017-04-19 16:12 | CP.PCM.CON ---
History of Present Illness - History of Present Illness History of Present Illness: INFECTIOUS DISEASE CONSULT; HPI. 81-year-old female with no significant past medical history except for hypertension who is status post trip and fall at home 5 days prior to admission complaining of pain left hip, left shoulder pain and some hand bruises. Plain x-rays showed possible fracture of the pelvic bones which was confirmed by pelvic CT and was found to have complex communitive fracture transverse anterior superior left pubic bone near pubic symphysis and complex communitive fracture inferior left pubic bone. Presently denies back pain but complains of pain left hip. Patient seen by orthopedic service and recommendations noted for just observation and no active surgery. Patient denies any fever or chills. Denies any recent cold or cough. Patient urine culture reported positive for Escherichia coli today. Infectious disease consultation therefore requested by PMD for IV antibiotics 4 urosepsis. Patient did receive 1 dose of ceftriaxone 1 g last night.patient was also noted to have slight transaminitis with bilirubin 1.1 and AST of 55. Patient states she did have some lower abdominal discomfort and dysuria initially but presently has abated after receiving antibiotics and analgesics. Patient denies any history of kidney stones or recurrent UTIs.Patient denies any history of hepatitis in the past. PMH: HTN Surgical History: No Surg Hx Family History: States: Unknown Family Hx - Social History Hx Alcohol Use: No Hx Substance Use: No - Immunization History Hx Tetanus Toxoid Vaccination: No Hx Influenza Vaccination: No Hx Pneumococcal Vaccination: No Review of Systems - Constitutional Constitutional: absent: Chills, Fever, Headache - EENT Eyes: absent: Change in Vision, Other Visual Disturbances Nose/Mouth/Throat: Dry Mouth. absent: Sore Throat - Cardiovascular Cardiovascular: absent: Chest Pain, Dyspnea - Respiratory Respiratory: absent: Cough, Hemoptysis - Gastrointestinal Gastrointestinal: Abdominal Pain (lower abdominal discomfort and dysuria on admission.), Nausea (complained of bloating and vomited once today.), Vomiting. absent: Diarrhea - Genitourinary Genitourinary: Difficulty Urinating, Dysuria, Pyuria. absent: Hematuria, Freq UTI - Musculoskeletal Musculoskeletal: absent: Back Pain, Neck Pain, Numbness, Radiating Pain into Limb - Neurological Neurological: absent: Paresthesias, Sensory Deficit - Hematologic/Lymphatic Hematologic: As Per HPI. absent: Easy Bleeding, Easy Bruising Past Patient History - Past Medical History & Family History Past Medical History?: Yes - Past Social History Smoking Status: Never Smoked - CARDIAC Hx Hypertension: Yes - MUSCULOSKELETAL/RHEUMATOLOGICAL Hx Falls: Yes (at home) - PSYCHIATRIC Hx Substance Use: No Meds Allergies/Adverse Reactions: Allergies Allergy/AdvReac Type Severity Reaction Status Date / Time No Known Allergies Allergy Verified 04/17/17 06:31 - Medications Medications: Current Medications Amlodipine Besylate (Norvasc) 5 mg PO DAILY [facility] Last Admin: 04/19/17 09:35 Dose: 5 mg Ceftriaxone Sodium 1 gm/ (Sodium Chloride) 100 mls @ 100 mls/hr IVPB Q24H [facility] Stop: 04/19/17 23:59 Last Admin: 04/18/17 23:32 Dose: 100 mls/hr Aztreonam 1 gm/ Sodium (Chloride) 100 mls @ 100 mls/hr IVPB Q12 [facility] Pantoprazole Sodium (Protonix Ec Tab) 40 mg PO DAILY [facility] Last Admin: 04/19/17 09:35 Dose: 40 mg Tramadol HCl (Ultram) 25 mg PO Q8 PRN PRN Reason: Pain, moderate (4-7) Last Admin: 04/19/17 09:34 Dose: 25 mg Physical Exam - Constitutional Appears: No Acute Distress - Head Exam Head Exam: NORMAL INSPECTION - Eye Exam Eye Exam: EOMI, PERRL. absent: Scleral icterus - ENT Exam ENT Exam: Mucous Membranes Moist, Normal Oropharynx - Neck Exam Neck exam: Positive for: Normal Inspection - Respiratory Exam Respiratory Exam: Clear to Auscultation Bilateral, NORMAL BREATHING PATTERN - Cardiovascular Exam Cardiovascular Exam: REGULAR RHYTHM, +S1, +S2 - GI/Abdominal Exam GI & Abdominal Exam: Normal Bowel Sounds, Soft, Tenderness (some suprapubic tenderness on deep palpation.) - Extremities Exam Extremities exam: Positive for: pedal pulses present. Negative for: calf tenderness, pedal edema Additional comments: some tenderness on the pelvic bones left side. No swelling or dislocation externally noted. - Back Exam Back exam: FULL ROM. absent: CVA tenderness (L), CVA tenderness (R) - Neurological Exam Neurological exam: Alert, CN II-XII Intact, Oriented x3, Reflexes Normal - Psychiatric Exam Psychiatric exam: Normal Mood - Skin Skin Exam: Normal Color, Warm Results - Vital Signs Recent Vital Signs: Last Vital Signs Temp 97.9 F 12/06/17 15:30 Pulse 63 04/19/17 15:30 Resp 20 04/19/17 15:30 BP 146/69 04/19/17 15:30 Pulse Ox 100 04/19/17 15:30 - Labs Result Diagrams: 04/19/17 07:18 04/19/17 07:18 Labs: Laboratory Results - last 24 hr 04/19/17 04/19/17 07:18 07:18 WBC 6.6 RBC 3.90 Hgb 10.7 L Hct 34.0 MCV 87.1 MCH 27.4 MCHC 31.5 L RDW 25.3 H Plt Count 404 H MPV 9.3 Differential Comment Sodium 140 Potassium 4.2 Chloride 103 Carbon Dioxide 26 Anion Gap 14 BUN 14 Creatinine 0.8 Est GFR ( Amer) > 60 Est GFR (Non-Af Amer) > 60 Random Glucose 87 Calcium 8.5 L - Imaging and Cardiology CT scan - pelvis Status: Report reviewed by me (see full report.) Assessment & Plan (1) UTI (urinary tract infection) Assessment and Plan: patient presently has a Cohen catheter in place .Urine cultures noted+ve ESCHERICHIA COLI S-PANSENSITIVE. DC IV ROCEPHIN IN VIEW OFF HEPATIC METABOLISM. PATIENT HAS TRANSAMINITIS. START iv AZACTAM 1 G EVERY 12 HOURLY X 5DAYS. BLADDER TRAINING AND DC Cohen WITH TRIAL OF VOIDING IN 2-3 DAYS. WILL DISCUSS WITH PMD. Status: Acute (2) Closed fracture of left inferior pubic ramus Assessment and Plan: BEDREST PT PER ORTHOPEDIC. Status: Acute (3) Closed fracture of left superior pubic ramus Status: Acute (4) Fracture of sacrum Status: Acute (5) Soft tissue injury of left upper arm Status: Acute (6) Hypertension Assessment and Plan: INTERMITTENT HIGH BLOOD PRESSURE. PMD ON THE CASE Status: Acute
[2017-04-19] MEDS: Aztreonam 1 GM in Sodium Chloride 0.9% 100 ML IVPB SCH (21:15)
[2017-04-20] MEDS: Aztreonam 1 GM in Sodium Chloride 0.9% 100 ML IVPB SCH ×2 (09:28→21:41)
[2017-04-20] MEDS: Pantoprazole 40 mg EC Tab PO SCH (09:29)
[2017-04-20] MEDS: Tramadol 25 mg PO PRN ×2 (09:30→22:57)
--- NOTE | 2017-04-20 13:36 | CP.PCM.PN ---
Subjective - Date & Time of Evaluation Date of Evaluation: 04/20/17 Time of Evaluation: 13:35 - Subjective Subjective: CHIEF COMPLAINTS TODAY : PAIN IN LEFT HIP AREA ROS. HEENT : N. Resp : No cough, wheezing ,pleuritic CP ,or hemoptysis Cardio : No anginal CP, PND, orthopnea, palpitation GI : No abd.pain, n/v ,diarrhea or GI bleeding . 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 Musculoskel : No joint swelling , Derm : No rash Psych : Normal affect. Ext : No swelling ,calf pain PE. Pt. is alert awake in no distress. V.S As noted in the chart Head ,ear nose,throat and eyes : Normal. Neck : Supple with normal carotids. Lungs: Clear air entry. Heart : S1 & S2 normal with S4. No murmur. Abd : Soft non tender with normal bowel sounds. Neuro : Moves all ext. with no localized deficit. Ext : No edema with intact pulses.Non tender calves TENDERNESS LEFT HIP AREA LEFT SHOULDER , PAINFUL ROM Derm : No rashes or decubitus ulcer. LABS/RADIOLOGY: URINE E.COLI SEN TO [place] ASSESSMENT/PLAN : SUPPORTIVE RX SHORT TERM REHAB IV AZACTAM, WILL D/W ID TO CHANGE AB FOR REHAB AUTHORIZATION Objective - Vital Signs/Intake and Output Vital Signs (last 24 hours): Temp Pulse Resp BP Pulse Ox 98.6 F 88 20 137/70 97 04/20/17 08:00 04/20/17 12:24 04/20/17 08:00 04/20/17 12:24 04/20/17 08:00 Intake and Output: 04/20/17 04/20/17 11:59 23:59 Intake Total 120 Balance 120 - Medications Medications: Current Medications Amlodipine Besylate (Norvasc) 5 mg PO DAILY [facility] Last Admin: 04/20/17 09:30 Dose: 5 mg Aztreonam 1 gm/ Sodium (Chloride) 100 mls @ 100 mls/hr IVPB Q12 [facility] Last Admin: 04/20/17 09:28 Dose: 100 mls/hr Pantoprazole Sodium (Protonix Ec Tab) 40 mg PO DAILY [facility] Last Admin: 04/20/17 09:29 Dose: 40 mg Tramadol HCl (Ultram) 25 mg PO Q8 PRN PRN Reason: Pain, moderate (4-7) Last Admin: 04/20/17 09:30 Dose: 25 mg - Labs Labs: 04/19/17 07:18 04/19/17 07:18 PT 12.6 SECONDS (9.7-12.2) H 04/17/17 09:29 INR 1.1 04/17/17 09:29 APTT 29 SECONDS (21-34) 04/17/17 09:29 Assessment and Plan (1) Lower back pain Status: Acute (2) Soft tissue injury of left upper arm Status: Acute
[2017-04-20 15:55] VITALS: O2SAT 95
--- NOTE | 2017-04-20 23:24 | CP.PCM.PN ---
Subjective - Date & Time of Evaluation Date of Evaluation: 04/20/17 Time of Evaluation: 23:24 - Subjective Subjective: CHIEF COMPLAINTS TODAY : c/o pain left pelvic region. ROS. HEENT : N. Resp : No cough, wheezing ,pleuritic CP ,or hemoptysis Cardio : No anginal CP, PND, orthopnea, palpitation GI : No abd.pain, n/v ,diarrhea or GI bleeding . 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 Musculoskel : No joint swelling , Derm : No rash Psych : Normal affect. Ext : No swelling ,calf pain PE. Pt. is alert awake in no distress. V.S As noted in the chart Head ,ear nose,throat and eyes : Normal. Neck : Supple with normal carotids. Lungs: Clear air entry. Heart : S1 & S2 normal with S4. No murmur. Abd : Soft non tender with normal bowel sounds. Neuro : Moves all ext. with no localized deficit. Ext : No edema with intact pulses.Non tender calves TENDERNESS LEFT HIP AREA, LEFT SHOULDER , PAINFUL ROM Derm : No rashes or decubitus ulcer. LABS/RADIOLOGY: URINE E.COLI SEN TO ROCEPHIN /CIPRO. ASSESSMENT/PLAN : ON IV ROCEPHIN 1 G EVERY 12 HOURLY. MAY CHANGE IT TO BY MOUTH CIPRO 500 TWICE A DAY X 5DAYS ON DC TO [facility].. Objective - Vital Signs/Intake and Output Vital Signs (last 24 hours): Temp Pulse Resp BP Pulse Ox 97.6 F 92 H 20 151/66 H 95 04/20/17 15:48 04/20/17 15:48 04/20/17 15:48 04/20/17 15:48 04/20/17 15:48 Intake and Output: 04/20/17 04/21/17 18:59 06:59 Intake Total 480 Balance 480 - Medications Medications: Current Medications Amlodipine Besylate (Norvasc) 5 mg PO DAILY [facility] Last Admin: 04/20/17 09:30 Dose: 5 mg Aztreonam 1 gm/ Sodium (Chloride) 100 mls @ 100 mls/hr IVPB Q12 [facility] Last Admin: 04/20/17 21:41 Dose: 100 mls/hr Pantoprazole Sodium (Protonix Ec Tab) 40 mg PO DAILY [facility] Last Admin: 04/20/17 09:29 Dose: 40 mg Tramadol HCl (Ultram) 25 mg PO Q8 PRN PRN Reason: Pain, moderate (4-7) Last Admin: 04/20/17 22:57 Dose: 25 mg - Labs Labs: 04/19/17 07:18 04/19/17 07:18 PT 12.6 SECONDS (9.7-12.2) H 04/17/17 09:29 INR 1.1 04/17/17 09:29 APTT 29 SECONDS (21-34) 04/17/17 09:29 Assessment and Plan (1) UTI (urinary tract infection) Status: Acute (2) Closed fracture of left inferior pubic ramus Status: Acute (3) Closed fracture of left superior pubic ramus Status: Acute (4) Fracture of sacrum Status: Acute (5) Soft tissue injury of left upper arm Status: Acute (6) Hypertension Status: Acute
--- NOTE | 2017-04-21 06:44 | CP.PCM.PN ---
Objective - Vital Signs/Intake and Output Vital Signs (last 24 hours): Temp Pulse Resp BP Pulse Ox 97.6 F 68 20 102/64 95 04/21/17 01:51 04/21/17 01:51 04/21/17 01:51 04/21/17 01:51 04/21/17 01:51 Intake and Output: 04/20/17 04/21/17 18:59 06:59 Intake Total 480 Balance 480 - Medications Medications: Current Medications Amlodipine Besylate (Norvasc) 5 mg PO DAILY [facility] Last Admin: 04/20/17 09:30 Dose: 5 mg Aztreonam 1 gm/ Sodium (Chloride) 100 mls @ 100 mls/hr IVPB Q12 [facility] Last Admin: 04/20/17 21:41 Dose: 100 mls/hr Pantoprazole Sodium (Protonix Ec Tab) 40 mg PO DAILY [facility] Last Admin: 04/20/17 09:29 Dose: 40 mg Tramadol HCl (Ultram) 25 mg PO Q8 PRN PRN Reason: Pain, moderate (4-7) Last Admin: 04/20/17 22:57 Dose: 25 mg - Labs Labs: 04/19/17 07:18 04/19/17 07:18 PT 12.6 SECONDS (9.7-12.2) H 04/17/17 09:29 INR 1.1 04/17/17 09:29 APTT 29 SECONDS (21-34) 04/17/17 09:29 Assessment and Plan (1) Closed fracture of left superior pubic ramus Status: Acute (2) Closed fracture of left inferior pubic ramus Status: Acute (3) Fracture of sacrum Status: Acute (4) UTI (urinary tract infection) Status: Acute
[2017-04-21 08:23] VITALS: BP 151/71; PULSE 73; TEMP 98.3
[2017-04-21] MEDS: Pantoprazole 40 mg EC Tab PO SCH (10:28)
--- NOTE | 2017-04-21 10:37 | CP.PCM.PN ---
Subjective - Date & Time of Evaluation Date of Evaluation: 04/21/17 Time of Evaluation: 10:34 - Subjective Subjective: PT CLEARED FOR D/C TO [facility] TODAY; OK TO D/C PER DR. WHITMORE. CLEARED BY ORTHO AND PT TO F/U WITH DR. PALUMBO IN THE OFFICE IN 10-14 DAYS. SW TO MAKE ARRANGEMENTS FOR TRANSPORTATION TO [facility] [place] THIS AFTERNOON. DR. CANNON'S NOTES REVIEWED AND APPRECIATED---PT TO CONTINUE CIPRO 500MG PO BID X5 DAYS--FIRST DOSE STARTED HERE THIS MORNING TO MAKE SURE PT IS NOT ALLERGIC---TO CONTINUE CIPRO FROM 04/21/17 AND LAST DOSE TO BE GIVEN DURING THE EVENING OF 04/25/17. THE INFORMATION BELOW SENT WITH PT TO [facility] [place]. TO BE FOLLOWED BY DR WHITMORE WHILE THERE. NO FURTHER ORDERS. PLACE UNDER THE SERVICE OF DR. WHITMORE WHILE AT [facility]CALL UPON ARRIVAL FOR ADMITTING ORDERS AND WITH BED ASSIGNMENT. CONTINUE MEDICATIONS PER THE MED REC FORM---CHANGES TO BE MADE BY DR. WHITMORE. CONTINUE PHYSICAL THERAPY TOLERATED. PLEASE ARRANGE FOR MRS. LYNCH TO FOLLOW UP WITH DR PALUMBO (ORTHO) IN THE OFFICE IN 10-14 DAYS--ARRANGE VISIT AND TRANSPORTATION PLEASE ---SHOULD SEE DR. PALUMBO BETWEEN 05/01/17-05/05/17. FALL PRECAUTIONS PER FACILITY PROTOCOL. CALL DR. WHITMORE IN THE OFFICE FOR FURTHER ORDERS AND QUESTIONS. Objective - Vital Signs/Intake and Output Vital Signs (last 24 hours): Temp Pulse Resp BP Pulse Ox 98.3 F 73 20 151/71 H 95 04/21/17 08:22 04/21/17 08:22 04/21/17 08:22 04/21/17 08:22 04/21/17 08:22 - Medications Medications: Current Medications Amlodipine Besylate (Norvasc) 5 mg PO DAILY [facility] Last Admin: 04/21/17 10:28 Dose: 5 mg Ciprofloxacin (Cipro) 500 mg PO BID [facility] Pantoprazole Sodium (Protonix Ec Tab) 40 mg PO DAILY [facility] Last Admin: 04/21/17 10:28 Dose: 40 mg Tramadol HCl (Ultram) 25 mg PO Q8 PRN PRN Reason: Pain, moderate (4-7) Last Admin: 04/20/17 22:57 Dose: 25 mg - Labs Labs: 04/19/17 07:18 04/19/17 07:18 PT 12.6 SECONDS (9.7-12.2) H 04/17/17 09:29 INR 1.1 04/17/17 09:29 APTT 29 SECONDS (21-34) 04/17/17 09:29
--- NOTE | 2017-04-21 13:53 | CP.PCM.DIS ---
Provider - Provider Date of Admission: 04/17/17 08:42 Attending physician: Twan Melchor MD Time Spent in preparation of Discharge (in minutes): 35 Diagnosis - Discharge Diagnosis (1) Lower back pain Status: Acute (2) Soft tissue injury of left upper arm Status: Acute Hospital Course - Lab Results Lab Results: Micro Results 04/17/17 06:54 Urine Urine Culture - Final Escherichia Coli Most Recent Lab Values WBC 6.6 K/uL (4.8-10.8) 04/19/17 07:18 RBC 3.90 Mil/uL (3.80-5.20) 04/19/17 07:18 Hgb 10.7 g/dL (11.0-16.0) L 04/19/17 07:18 Hct 34.0 % (34.0-47.0) 04/19/17 07:18 MCV 87.1 fL (81.0-99.0) 04/19/17 07:18 MCH 27.4 pg (27.0-31.0) 04/19/17 07:18 MCHC 31.5 g/dL (33.0-37.0) L 04/19/17 07:18 RDW 25.3 % (11.5-14.5) H 04/19/17 07:18 Plt Count 404 K/uL (130-400) H 04/19/17 07:18 MPV 9.3 fL (7.2-11.7) 04/19/17 07:18 Neut % (Auto) 69.4 % (50.0-75.0) 04/17/17 09:29 Lymph % (Auto) 21.6 % (20.0-40.0) 04/17/17 09:29 Glenn % (Auto) 7.0 % (0.0-10.0) 04/17/17 09:29 Eos % (Auto) 0.9 % (0.0-4.0) 04/17/17 09:29 Baso % (Auto) 1.1 % (0.0-2.0) 04/17/17 09:29 Neut # 5.7 K/uL (1.8-7.0) 04/17/17 09:29 Lymph # 1.8 K/uL (1.0-4.3) 04/17/17 09:29 Glenn # 0.6 K/uL (0.0-0.8) 04/17/17 09:29 Eos # 0.1 K/uL (0.0-0.7) 04/17/17 09:29 Baso # 0.1 K/uL (0.0-0.2) 04/17/17 09:29 Differential Comment 04/19/17 07:18 PT 12.6 SECONDS (9.7-12.2) H 04/17/17 09:29 INR 1.1 04/17/17 09:29 APTT 29 SECONDS (21-34) 04/17/17 09:29 Sodium 140 mmol/L (132-148) 04/19/17 07:18 Potassium 4.2 mmol/L (3.6-5.2) 04/19/17 07:18 Chloride 103 mmol/L (98-107) 04/19/17 07:18 Carbon Dioxide 26 mmol/L (22-30) 04/19/17 07:18 Anion Gap 14 (10-20) 04/19/17 07:18 BUN 14 mg/dL (7-17) 04/19/17 07:18 Creatinine 0.8 mg/dL (0.7-1.2) 04/19/17 07:18 Est GFR ( Amer) > 60 04/19/17 07:18 Est GFR (Non-Af Amer) > 60 04/19/17 07:18 Random Glucose 87 mg/dL (65-105) 04/19/17 07:18 Calcium 8.5 mg/dl (8.6-10.4) L 04/19/17 07:18 Total Bilirubin 1.1 mg/dL (0.2-1.3) 04/17/17 09:29 AST 55 U/L (14-36) H 04/17/17 09:29 ALT 33 U/L (9-52) 04/17/17 09:29 Alkaline Phosphatase 118 U/L (38-126) 04/17/17 09:29 Total Protein 8.0 g/dL (6.3-8.3) 04/17/17 09:29 Albumin 4.3 g/dL (3.5-5.0) 04/17/17 09:29 Globulin 3.7 gm/dL (2.2-3.9) 04/17/17 09:29 Albumin/Globulin Ratio 1.1 (1.0-2.1) 04/17/17 09:29 Urine Color Yellow (YELLOW) 04/17/17 08:07 Urine Clarity Clear (Clear) 04/17/17 08:07 Urine pH 7.0 (5.0-8.0) 04/17/17 08:07 Ur Specific [place] 1.016 (1.003-1.030) 04/17/17 08:07 Urine Protein Negative mg/dL (NEGATIVE) 04/17/17 08:07 Urine Glucose (UA) Normal mg/dL (Normal) 04/17/17 08:07 Urine Ketones Negative mg/dL (NEGATIVE) 04/17/17 08:07 Urine Blood 1+ (NEGATIVE) H 04/17/17 08:07 Urine Nitrate Negative (NEGATIVE) 04/17/17 08:07 Urine Bilirubin Negative (NEGATIVE) 04/17/17 08:07 Urine Urobilinogen Normal mg/dL (0.2-1.0) 04/17/17 08:07 Ur Leukocyte Esterase 2+ Lynette/uL (Negative) H 04/17/17 08:07 Urine WBC (Auto) 222 /hpf (0-5) H 04/17/17 08:07 Urine RBC (Auto) 17 /hpf (0-3) H 04/17/17 08:07 Ur Squamous Epith Cells 1 /hpf (0-5) 04/17/17 08:07 Urine Bacteria Rare (<OCC) 04/17/17 08:07 Blood Type A POSITIVE 04/17/17 09:29 Antibody Screen Negative 04/17/17 09:29 - Hospital Course Hospital Course: 81 year old female presents to the ER with a complaint of pain to the left upper arm and lower back, associated with dysuria. Patient reports she fell 6 days ago, denies weakness or numbness. WORK UP SHOWED FX OF LEFT SUPERIOR AND INFERIOR RAMI OF PUBIC BONE AND SACRUM AND E.COLI IN URINE PT WAS TREATED WITH CONSERVATIVE THERAPY DUE TO DELAY IN PRESENTATION PT STABLE , TRANSFER TO [facility] FOR PT AND GAIT TRAINING Discharge Exam - Head Exam Head Exam: NORMAL INSPECTION Discharge Plan - Follow Up Plan Condition: STABLE Disposition: HOME/ ROUTINE Instructions: Urinary Tract Infection in Women (DC), Pelvic Fracture (DC), Fall Prevention for Older Adults (GEN), Contusion in Adults (DC), Fall Prevention (DC) Additional Instructions: PLACE UNDER THE SERVICE OF DR. MELCHOR [place] [facility]CALL UPON ARRIVAL FOR ADMITTING ORDERS AND WITH BED ASSIGNMENT. CONTINUE MEDICATIONS PER THE MED REC FORM---CHANGES TO BE MADE BY DR. MELCHOR. CONTINUE PHYSICAL THERAPY TOLERATED. PLEASE ARRANGE FOR MRS. LYNCH TO FOLLOW UP WITH DR PALUMBO (ORTHO) IN THE OFFICE IN 10-14 DAYS--ARRANGE VISIT AND TRANSPORTATION PLEASE ---SHOULD SEE DR. PALUMBO BETWEEN 05/01/17-05/05/17. FALL PRECAUTIONS PER FACILITY PROTOCOL. CALL DR. MELCHOR IN THE OFFICE FOR FURTHER ORDERS AND QUESTIONS. Referrals: Jelani Palumbo III, MD [Staff Provider] - Bette Desai MD [Staff Provider] - Twan Melchor MD [Staff Provider] -
[2017-04-21] MEDS: Tramadol 25 mg PO PRN (14:33)
== END 2017-04-21 14:54 | DRG 536 ==
LOC: C.ER 06:22 → C.9E 08:42 → C.6T 19:00
PROVIDERS: ADMIT Internal Medicine Cardiovascular Disease; ATTEND Internal Medicine Cardiovascular Disease
DX: S32.592A Other specified fracture of left pubis, initial encounter for closed fracture (principal); S32.10XA Unspecified fracture of sacrum, initial encounter for closed fracture; N39.0 Urinary tract infection, site not specified; S60.229A Contusion of unspecified hand, initial encounter; I10 Essential (primary) hypertension; I87.8 Other specified disorders of veins; M43.16 Spondylolisthesis, lumbar region; M43.17 Spondylolisthesis, lumbosacral region; M46.90 Unspecified inflammatory spondylopathy, site unspecified; M47.816 Spondylosis without myelopathy or radiculopathy, lumbar region; M85.80 Other specified disorders of bone density and structure, unspecified site; W01.0XXA Fall on same level from slipping, tripping and stumbling without subsequent striking against object, initial encounter; Z91.81 History of falling; Y92.009 Unspecified place in unspecified non-institutional (private) residence as the place of occurrence of the external cause; R74.0 Nonspecific elevation of levels of transaminase and lactic acid dehydrogenase [LDH]; B96.20 Unspecified Escherichia coli [E. coli] as the cause of diseases classified elsewhere

== ENCOUNTER 2018-07-24 12:16 | Observation (INO) | payer MEDICARE, MEDICAID ==
[2018-07-24 12:26] VITALS: BMI 23.8
--- NOTE | 2018-07-24 12:32 | C.PDOC ---
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 Patient describes the pain as throbbing and gas. Patient reports that she had 1-2 episodes of non-bilious non-bloody vo miting and 2 episodes of soft stool. She notes that her last bm was at 11 am, non bloody, non dark. No chest pain. No leg swelling. She denies taking any medication for her pain. Denies having fever,chills, headache, dysuria, hematuria, trauma, and falls. Time Seen by Provider: 07/24/18 12:32 Chief Complaint (Nursing): Abdominal Pain History Per: Patient History/Exam Limitations: no limitations Onset/Duration Of Symptoms: Hrs Current Symptoms Are (Timing): Still Present Severity: Moderate Past Medical History Reviewed: Historical Data, Nursing Documentation, Vital Signs - Medical History PMH: HTN Surgical History: No Surg Hx Family History: States: No Known Family Hx - Social History Hx Alcohol Use: No Hx Substance Use: No - Immunization History Hx Tetanus Toxoid Vaccination: No Hx Influenza Vaccination: No Hx Pneumococcal Vaccination: No Review Of Systems Constitutional: Negative for: Fever, Chills, Sweats, Weakness, Malaise, Weight loss Eyes: Negative for: Pain, Vision Change, Eyelid Inflammation ENT: Negative for: Ear Pain, Ear Discharge, Nose Pain, Nose Congestion, Mouth Pain, Mouth Swelling, Throat Pain Cardiovascular: Negative for: Chest Pain, Palpitations, Orthopnea, Paroxysmal Noc. Dyspnea Respiratory: Negative for: Cough, Shortness of Breath, Hemoptysis, SOB with Excertion, Pleuritic Pain, Sputum Gastrointestinal: Positive for: Vomiting, Abdominal Pain, Diarrhea. Negative for: Constipation, Melena, Hematochezia, Hematemesis Genitourinary: Negative for: Dysuria, Frequency, Incontinence, Hematuria, Vaginal Discharge, Vaginal Bleeding Musculoskeletal: Negative for: Neck Pain, Shoulder Pain Skin: Negative for: Rash, Lesions Neurological: Negative for: Weakness, Numbness Psych: Negative for: Anxiety Physical Exam - Physical Exam Appears: Well, Non-toxic, No Acute Distress Skin: Normal Color, Warm, Dry Head: Atraumatic, Normacephalic Eye(s): bilateral: Normal Inspection, PERRL, EOMI Ear(s): Bilateral: Normal Nose: Normal, No Flaring, No Discharge Oral Mucosa: Moist, No Dry Tongue: Normal Appearing Lips: Normal Appearing Teeth: Normal Dentition Gingiva: Normal Appearing Throat: Normal, No Erythema, No Exudate, No Drooling, No Mass Neck: Normal, Normal ROM, Supple, Other (no meningeal signs) Lymphatic: Normal Exam, No Adenopathy Chest: Symmetrical Cardiovascular: Rhythm Regular Respiratory: Normal Breath Sounds, No Rales, No Rhonchi, No Wheezing Gastrointestinal/Abdominal: Soft, Tenderness (RUQ tenderness), No Organomegaly, No Mass, No Distention, No Guarding, No Rebound, No Hernia, No Ascites Back: Normal Inspection, No CVA Tenderness, No Vertebral Tenderness, No Paraspinal Tenderness Extremity: Normal ROM, No Tenderness, No Swelling Extremity: Bilateral: Atraumatic, Normal Color And Temperature Neurological/Psych: Oriented x3, Normal Speech, Normal Cognition, Normal Motor Gait: Steady ED Course And Treatment - Laboratory Results Result Diagrams: 07/24/18 14:00 07/24/18 14:00 ECG: Interpreted By Me, Viewed By Me ECG Rhythm: Sinus Rhythm Rate From EC - CT Scan/US CT Other Rad Studies (CT/US): Read By Radiologist, Radiology Report Reviewed CT/US Interpretation: Date of service: 07/24/2018. PROCEDURE: CT Abdomen and Pelvis with contrast. HISTORY: ruq pain. COMPARISON: None available. Right upper quadrant ultrasound performed 07/24/18, pelvic CT performed without IV contrast on 04/17/17. TECHNIQUE: Contrast dose: 100 mL Visipaque 320 IV. Radiation dose: Total exam DLP = 800.57 mGy-cm. This CT exam was performed using one or more of the following dose reduction techniques: Automated exposure control, adjustment of the mA and/or kV according to patient size, and/or use of iterative reconstruction technique. FINDINGS: LOWER THORAX: No visible consolidation, pleural effusion, or pneumothorax. Moderate hiatal hernia. LIVER: Too small to characterize 5 mm hepatic hypodensity; statistically likely cyst or hemangioma. GALLBLADDER AND BILE DUCTS: Gallbladder distension. PANCREAS: Unremarkable. SPLEEN: Unremarkable. ADRENALS: Unremarkable. KIDNEYS AND URETERS: The kidneys enhance symmetrically. No hydronephrosis or obstructing calculus identified. Bilateral renal cysts as well as too small to characterize renal hypodensities which statistically are likely cysts. VASCULATURE: No aortic aneurysm. Atherosclerotic calcifications of the aorta. BOWEL: Stomach is nondistended. Lack of oral contrast limits evaluation for bowel pathology. Bowel loops appear within normal limits of caliber without evidence of obstruction. Wall thickening/mucosal edema versus under distention of the colon. APPENDIX: The appendix appears within normal limits of caliber. No secondary signs of acute appendicitis. PERITONEUM: No significant free fluid. No definite free air. LYMPH NODES: No bulky adenopathy identified. BLADDER: Unremarkable. REPRODUCTIVE: Heterogeneous uterus containing coarse calcifications presumably due to degenerating degenerating fibroids. BONES: Osseous demineralization. Degenerative changes. Chronic fracture deformity of the left pubic symphysis/pubic rami. OTHER FINDINGS: Partially imaged 15 mm soft tissue in the left breast may reflect normal breast tissue however given asymmetry recommend further evaluation with physical exam and dedicated breast imaging. 1.7 cm fat containing umbilical hernia. Fat containing bilateral inguinal hernias. Elevation of the left hemidiaphragm. IMPRESSION: Wall thickening/mucosal edema versus under distention of the colon. Correlate clinically for colitis. Partially imaged 15 mm soft tissue in the left breast may reflect normal breast tissue however given asymmetry recommend further evaluation with physical exam and dedicated breast imaging. Bilateral renal cysts as well as too small to characterize renal hypodensities which statistically are likely cysts. Gallbladder distension. Too small to characterize hepatic hypodensities; statistically likely cyst or hemangioma. Heterogeneous appearance of the uterus with coarse calcifications consistent with degenerating fibroids. Chronic appearing fracture deformity of the left pubic symphysis/pubic rami. Additional findings as above. US Other Rad Studies (CT/US): Read By Radiologist, Radiology Report Reviewed CT/US Interpretation: Date of service: 07/24/2018. HISTORY: ruq pain. COMPARISON: None available. TECHNIQUE: Sonographic evaluation of the right upper quadrant of the abdomen. FINDINGS: LIVER: Measures 17.0 cm in length. Echogenic liver may be seen in setting of hepatic parenchymal disease or fatty infiltration. 1.1 x 1.0 x 1.1 cm hepatic cyst. The main portal vein appears patent with normal directional flow. No intrahepatic bile duct dilatation. GALLBLADDER: No gallstones. No gallbladder wall thickening or pericholecystic edema. Negative sonographic Kent's sign as assessed by the agricultural engineer. COMMON BILE DUCT: Measures 3 mm. PANCREAS: Not well-visualized. RIGHT KIDNEY: Measures approximately 9.5 x 3.2 x 4.3 cm. No obstructing calculus or hydronephrosis identified. Cortical thinning. Multiple right renal cysts measuring up to 3.9 cm. AORTA: Limited visualization appears grossly unremarkable. IVC: Limited visualization appears grossly unremarkable. OTHER FINDINGS: None . IMPRESSION: Echogenic liver may be seen in setting of hepatic parenchymal disease or fatty infiltration. 1.1 cm hepatic cyst. Right renal cysts measuring up to 3.9 cm. Right renal cortical thinning. 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 No Chest pain or pleuritic chest pain. No leg swelling. No fever, chills or night sweats. Likely gallbladder related issue vs GERD, given RUQ pain on palpation will seek imaging however. Plan: --Labs --UA --ECG --US- RUQ --Zofran IV EKG NSR 68 bpm no STEMI 1638 labs and RUQ us largely unremarkable except mildly elevated WBC and AST el evation Repeat exam w/ RUQ pain CT ordered, pending surgical eval Dr. Tom requests Dr. Cohen team vice president of sales to see pt pt In [facility]. 1809 lactic 3.2, likely colitis on CT Informed pt regarding breast findings, ?mass and need to f/u w/ PMD No indication for surgical intervention at this time per surgery Cipro flagyl ordered appreciate consult w/ DR. Tom, to admit to her service pt in NAD Disposition - Disposition Disposition: HOSPITALIZED Disposition Time: 18:11 Condition: STABLE - Clinical Impression Clinical Impression: Colitis - Scribe Statement The provider has reviewed the documentation as recorded by the Scribe [facility] Provider Attestation: All medical record entries [facility] by the [facility] were at my direction and personally dictated by me. I have reviewed the chart and agree that the record accurately reflects my personal performance of the history, physical exam, medical decision making, and the department course for this patient. I have also personally directed, reviewed, and agree with the discharge instructions and disposition.
[2018-07-24 13:13] LABS: VENOUS BLOOD GAS PCO2 45 mmHg (40-60); VENOUS BLOOD GAS PO2 16 mm/Hg (30-55); VENOUS BLOOD PH 7.38 (7.32-7.43)
[2018-07-24 14:06] LABS: BASO % 0.4 % (0.0-2.0); EOS # 0.1 K/uL (0.0-0.7); EOS % 0.4 % (0.0-4.0); HEMOGLOBIN 11.4 g/dL (11.0-16.0); LYMPH # 2.3 K/uL (1.0-4.3); MEAN CELL VOLUME 88.3 fL (81.0-99.0); MEAN CORPUSCULAR HEMOGLOBIN 27.8 pg (27.0-31.0); MEAN CORPUSCULAR HGB CONC 31.5 g/dL (33.0-37.0); MEAN PLATELET VOLUME 10.3 fL (7.2-11.7); MONO # 0.6 K/uL (0.0-0.8); MONO % 4.4 % (0.0-10.0); NEUT # 10.4 K/uL (1.8-7.0); NEUT % 77.8 % (50.0-75.0); NRBC % 0.3 % (0.0-2.0); RBC 4.1 Mil/uL (3.80-5.20); RED CELL DISTRIBUTION WIDTH 26.4 % (11.5-14.5)
[2018-07-24 14:09] LABS: WHITE BLOOD COUNT 13.3 K/uL (4.8-10.8)
[2018-07-24 14:26] LABS: ALB/GLOB RATIO 1.2 (1.0-2.1); ALBUMIN 5.1 g/dL (3.5-5.0); ALT/SGPT 26 U/L (9-52); AST/SGOT 88 U/L (14-36); BLOOD UREA NITROGEN 22 mg/dL (7-17); CALCIUM 9.9 mg/dl (8.6-10.4); GFR NON-AFRICAN AMERICAN 60
[2018-07-24 14:34] LABS: URINE BACTERIA RARE (<OCC); URINE BILIRUBIN NEGATIVE (NEGATIVE); URINE BLOOD NEGATIVE (NEGATIVE); URINE CLARITY Clear (Clear); URINE COLOR Yellow (YELLOW); URINE GLUCOSE (UA) NORMAL (Normal); URINE LEUKOCYTE ESTERASE NEG Leu/uL (Negative); URINE PROTEIN 1+ mg/dL (NEGATIVE)
--- NOTE | 2018-07-24 15:41 | US ---
Date of service: 07/24/2018 HISTORY: ruq pain COMPARISON: None available. TECHNIQUE: Sonographic evaluation of the right upper quadrant of the abdomen. FINDINGS: LIVER: Measures 17.0 cm in length. Echogenic liver may be seen in setting of hepatic parenchymal disease or fatty infiltration. 1.1 x 1.0 x 1.1 cm hepatic cyst. The main portal vein appears patent with normal directional flow. No intrahepatic bile duct dilatation. GALLBLADDER: No gallstones. No gallbladder wall thickening or pericholecystic edema. Negative sonographic Kent's sign as assessed by the framing consultant. COMMON BILE DUCT: Measures 3 mm. PANCREAS: Not well-visualized. RIGHT KIDNEY: Measures approximately 9.5 x 3.2 x 4.3 cm. No obstructing calculus or hydronephrosis identified. Cortical thinning. Multiple right renal cysts measuring up to 3.9 cm. AORTA: Limited visualization appears grossly unremarkable. IVC: Limited visualization appears grossly unremarkable. OTHER FINDINGS: None . IMPRESSION: Echogenic liver may be seen in setting of hepatic parenchymal disease or fatty infiltration. 1.1 cm hepatic cyst. Right renal cysts measuring up to 3.9 cm. Right renal cortical thinning.
[2018-07-24] MEDS ORDERED: Iodixanol 320 MG/ML 100 ML BOTTLE IV ONE (16:17)
--- NOTE | 2018-07-24 17:16 | CP.PCM.CON ---
History of Present Illness - History of Present Illness History of Present Illness: Consult Note for Dr. Henderson HPI: Patient is an 82 year old female with history of hypertension who presents for right upper quadrant pain that started at 11am today. She states she felt sharp, sudden pain 8/10 this morning at 11am associated with diffuse chills, lightheadedness and near syncopal episode. As per family, homemaker caught her and helped her to a chair. She did not fall or hit her head. Patient states she has 2 episodes of nonbloody nonbilious vomiting, and was incontinent of stool with 2 episodes of soft nonwatery brown stools after she ate beans. She currently states her pain has improved after she received Zofran and Pepcid in the ED. Her symptoms of lightheadedness have resolved. She denies chest pain, shortness of breath, palpitations, dysuria, urinary frequency, leg pain or leg swelling. PMD: Dr. Tom PMH: Hypertension, anxiety PSH: none Home meds: Amlodipine 5mg, Omeprazole, unknown med for anxiety Allergies: NKDA Social hx: no history of tobacco, alcohol or drug use. Family hx: history of hypertension, no history of cancer. Healthcare proxy: Efrain Nam, patient's son [phone] Review of Systems - Constitutional Constitutional: Chills. absent: Fever, Headache - EENT Eyes: absent: Blurred Vision, Loss of Vision Ears: absent: Decreased Hearing Nose/Mouth/Throat: absent: Sore Throat - Cardiovascular Cardiovascular: absent: Chest Pain, Dyspnea, Palpitations - Respiratory Respiratory: absent: Cough, Dyspnea - Gastrointestinal Gastrointestinal: Abdominal Pain, Vomiting - Genitourinary Genitourinary: absent: Dysuria, Urinary Frequency - Musculoskeletal Musculoskeletal: absent: Back Pain, Stiffness - Neurological Neurological: absent: Confusion Past Patient History - Past Medical History & Family History Past Medical History?: Yes - Past Social History Smoking Status: Never Smoked - CARDIAC Hx Hypertension: Yes - MUSCULOSKELETAL/RHEUMATOLOGICAL Hx Falls: Yes (at home) - PSYCHIATRIC Hx Substance Use: No - SURGICAL HISTORY Hx Surgeries: No - ANESTHESIA Hx Anesthesia: No Meds Allergies/Adverse Reactions: Allergies Allergy/AdvReac Type Severity Reaction Status Date / Time No Known Allergies Allergy Verified 04/17/17 06:31 Physical Exam - Constitutional Appears: Well, Non-toxic, No Acute Distress - Head Exam Head Exam: ATRAUMATIC - Eye Exam Eye Exam: EOMI, PERRL - Neck Exam Neck exam: Positive for: Full Rom - Respiratory Exam Respiratory Exam: Clear to Auscultation Bilateral, NORMAL BREATHING PATTERN. absent: Rales, Rhonchi, Wheezes, Stridor - Cardiovascular Exam Cardiovascular Exam: REGULAR RHYTHM, +S1, +S2 - GI/Abdominal Exam GI & Abdominal Exam: Hyperactive Bowel Sounds, Soft. absent: Distended, Firm, Guarding, Rebound, Rigid, Tenderness - Extremities Exam Extremities exam: Positive for: pedal pulses present. Negative for: calf tenderness, pedal edema - Back Exam Back exam: absent: CVA tenderness (L), CVA tenderness (R) - Neurological Exam Neurological exam: Alert, Oriented x3 - Psychiatric Exam Psychiatric exam: Normal Affect, Normal Mood - Skin Skin Exam: Dry, Intact Results - Vital Signs Recent Vital Signs: Last Vital Signs Temp 97.9 F 07/24/18 16:01 Pulse 78 07/24/18 16:01 Resp 18 07/24/18 16:01 BP 137/67 07/24/18 16:01 Pulse Ox 96 07/24/18 16:01 - Labs Result Diagrams: 07/24/18 14:00 07/24/18 14:00 Labs: Laboratory Results - last 24 hr 07/24/18 07/24/18 07/24/18 13:05 14:00 14:00 WBC 13.3 H D RBC 4.10 Hgb 11.4 Hct 36.2 MCV 88.3 MCH 27.8 MCHC 31.5 L RDW 26.4 H Plt Count 412 H MPV 10.3 Neut % (Auto) 77.8 H Lymph % (Auto) 17.0 L [place] % (Auto) 4.4 Eos % (Auto) 0.4 Baso % (Auto) 0.4 Neut # (Auto) 10.4 H Lymph # (Auto) 2.3 [place] # (Auto) 0.6 Eos # (Auto) 0.1 Baso # (Auto) 0.0 pO2 16 L VBG pH 7.38 VBG pCO2 45 VBG HCO3 23.6 VBG Total CO2 28.0 VBG O2 Sat (Calc) 26.0 L VBG Base Excess 1.0 VBG Potassium 3.8 Sodium 139.0 135 Chloride 105.0 99 Glucose 95 Lactate 3.2 H Potassium 4.2 Carbon Dioxide 23 Anion Gap 18 BUN 22 H Creatinine 0.9 Est GFR ( Amer) > 60 Est GFR (Non-Af Amer) 60 Random Glucose 91 Calcium 9.9 Total Bilirubin 1.2 AST 88 H D ALT 26 Alkaline Phosphatase 70 Troponin I < 0.0120 Total Protein 9.6 H Albumin 5.1 H Globulin 4.4 H Albumin/Globulin Ratio 1.2 Venous Blood Potassium 3.8 Urine Color Urine Clarity Urine pH Ur Specific [place] Urine Protein Urine Glucose (UA) Urine Ketones Urine Blood Urine Nitrate Urine Bilirubin Urine Urobilinogen Ur Leukocyte Esterase Urine WBC (Auto) Urine RBC (Auto) Urine Bacteria 07/24/18 14:04 WBC RBC Hgb Hct MCV MCH MCHC RDW Plt Count MPV Neut % (Auto) Lymph % (Auto) [place] % (Auto) Eos % (Auto) Baso % (Auto) Neut # (Auto) Lymph # (Auto) [place] # (Auto) Eos # (Auto) Baso # (Auto) pO2 VBG pH VBG pCO2 VBG HCO3 VBG Total CO2 VBG O2 Sat (Calc) VBG Base Excess VBG Potassium Sodium Chloride Glucose Lactate Potassium Carbon Dioxide Anion Gap BUN Creatinine Est GFR ( Amer) Est GFR (Non-Af Amer) Random Glucose Calcium Total Bilirubin AST ALT Alkaline Phosphatase Troponin I Total Protein Albumin Globulin Albumin/Globulin Ratio Venous Blood Potassium Urine Color Yellow Urine Clarity Clear Urine pH 7.0 Ur Specific [place] 1.018 Urine Protein 1+ H Urine Glucose (UA) Normal Urine Ketones Negative Urine Blood Negative Urine Nitrate Negative Urine Bilirubin Negative Urine Urobilinogen 2.0 H Ur Leukocyte Esterase Neg Urine WBC (Auto) 2 Urine RBC (Auto) 1 Urine Bacteria Rare Assessment & Plan - Assessment and Plan (Free Text) Assessment: 82 year old female with history of hypertension who presents for RUQ pain. Plan: Abdomen US: Echogenic liver may be seen in setting of hepatic parenchymal disease or fatty infiltration. 1.1 cm hepatic cyst.Right renal cysts measuring up to 3.9 cm.Right renal cortical thinning. CBD 3mm. No gallstones. No gallbladder wall thickening or pericholecystic edema. Negative sonographic Kent's sign as assessed by the fixed income analyst CT abdomen/pelvis with IV contrast: Wall thickening/mucosal edema versus under distention of the colon. Correlate clinically for colitis. Partially imaged 15 mm soft tissue in the left breast may reflect normal breast tissue however given asymmetry recommend further evaluation with physical exam and dedicated breast imaging. Bilateral renal cysts as well as too small to characterize renal hypodensities which statistically are likely cysts. Gallbladder distension. Too small to characterize hepatic hypodensities; statistically likely cyst or hemangioma. Heterogeneous appearance of the uterus with coarse calcifications consistent with degenerating fibroids. Chronic appearing fracture deformity of the left pubic symphysis/pubic rami. CT findings consistent with colitis No surgical intervention at this time Please reconsult if necessary. Stella Benedict, PGY1
--- NOTE | 2018-07-24 17:32 | CT ---
Date of service: 07/24/2018 PROCEDURE: CT Abdomen and Pelvis with contrast HISTORY: ruq pain COMPARISON: None available. Right upper quadrant ultrasound performed 07/24/18, pelvic CT performed without IV contrast on 04/17/17 TECHNIQUE: Contrast dose: 100 mL Visipaque 320 IV Radiation dose: Total exam DLP = 800.57 mGy-cm. This CT exam was performed using one or more of the following dose reduction techniques: Automated exposure control, adjustment of the mA and/or kV according to patient size, and/or use of iterative reconstruction technique. FINDINGS: LOWER THORAX: No visible consolidation, pleural effusion, or pneumothorax. Moderate hiatal hernia. LIVER: Too small to characterize 5 mm hepatic hypodensity; statistically likely cyst or hemangioma. GALLBLADDER AND BILE DUCTS: Gallbladder distension. PANCREAS: Unremarkable. SPLEEN: Unremarkable. ADRENALS: Unremarkable. KIDNEYS AND URETERS: The kidneys enhance symmetrically. No hydronephrosis or obstructing calculus identified. Bilateral renal cysts as well as too small to characterize renal hypodensities which statistically are likely cysts. VASCULATURE: No aortic aneurysm. Atherosclerotic calcifications of the aorta. BOWEL: Stomach is nondistended. Lack of oral contrast limits evaluation for bowel pathology. Bowel loops appear within normal limits of caliber without evidence of obstruction. Wall thickening/mucosal edema versus under distention of the colon. APPENDIX: The appendix appears within normal limits of caliber. No secondary signs of acute appendicitis. PERITONEUM: No significant free fluid. No definite free air. LYMPH NODES: No bulky adenopathy identified. BLADDER: Unremarkable. REPRODUCTIVE: Heterogeneous uterus containing coarse calcifications presumably due to degenerating degenerating fibroids. BONES: Osseous demineralization. Degenerative changes. Chronic fracture deformity of the left pubic symphysis/pubic rami. OTHER FINDINGS: Partially imaged 15 mm soft tissue in the left breast may reflect normal breast tissue however given asymmetry recommend further evaluation with physical exam and dedicated breast imaging. 1.7 cm fat containing umbilical hernia. Fat containing bilateral inguinal hernias. Elevation of the left hemidiaphragm. IMPRESSION: Wall thickening/mucosal edema versus under distention of the colon. Correlate clinically for colitis. Partially imaged 15 mm soft tissue in the left breast may reflect normal breast tissue however given asymmetry recommend further evaluation with physical exam and dedicated breast imaging. Bilateral renal cysts as well as too small to characterize renal hypodensities which statistically are likely cysts. Gallbladder distension. Too small to characterize hepatic hypodensities; statistically likely cyst or hemangioma. Heterogeneous appearance of the uterus with coarse calcifications consistent with degenerating fibroids. Chronic appearing fracture deformity of the left pubic symphysis/pubic rami. Additional findings as above.
[2018-07-24] MEDS ORDERED: metroNIDAZOLE IV 500 mg/100 ml 500 MG/100 ML BAG IVPB STA (18:02)
[2018-07-24] MEDS ORDERED: Ciprofloxacin 400mg/200ml D5W 400 MG/200 ML BAG IVPB STA (18:02)
[2018-07-24] MEDS ORDERED: Sodium Chloride 0.9% 1,000 ML IV SCH (18:15)
[2018-07-24] MEDS ORDERED: metroNIDAZOLE IV 500 mg/100 ml 500 MG/100 ML BAG ONE (18:23)
[2018-07-24] MEDS ORDERED: Ciprofloxacin 400mg/200ml D5W 400 MG/200 ML BAG IVPB ONE (18:23)
--- NOTE | 2018-07-24 19:14 | CP.PCM.PCO ---
Physician Communication Note - Physician Communication Note Physician Communication Note: Further surgical evaluation via HIDA scan as per Dr. Henderson
--- NOTE | 2018-07-24 19:22 | CP.PCM.HP ---
History of Present Illness - History of Present Illness History of Present Illness: cc; Abd pain HPI; Pt is a 82 year old female with ho Htn who reports feeling well until this AM when she developed sudden RUQ abd pain. Pt states she woke up feeling well, had a toast and OJ, left the house to get some groceries at a [employer] where she felt ruq pain, nausea and weakness. PT vomited a couple of time and and was assisted by [employer] rep to go back home. Once she got home she describe having had a loose bm, felt chills and cold sweat. PT denies chest pain or sob. Pt denies any unsual food, no new meds. Pt denies any travel, no one sick at home. Pt denies any hematuria, cough , dysuria, constipation or diarrhea. pt states she feels better now, but still has RUq pain. PMHX HNT OA osteoporosis low vit D MEds; Amlodidpine 5mg qd PPI fosamax vit d social no tob no ethoh Parents; diseased NKDA Present on Admission - Present on Admission Any Indicators Present on Admission: No Review of Systems - Constitutional Constitutional: Chills. absent: Anorexia, Lethargy, Malaise, Weight Loss - Cardiovascular Cardiovascular: absent: Chest Pain, Dyspnea on Exertion, Edema, Leg Edema - Respiratory Respiratory: absent: Hemoptysis, Wheezing - Gastrointestinal Gastrointestinal: Abdominal Pain, Vomiting. absent: Belching, Bloating, Constipation, Cramping, Diarrhea, Early Satiety, Hematemesis - Genitourinary Genitourinary: absent: Change in Urinary Stream, Difficulty Urinating, Urinary Frequency - Neurological Neurological: Dizziness. absent: Abnormal Gait Past Patient History - Past Medical History & Family History Past Medical History?: Yes - Past Social History Smoking Status: Never Smoked - CARDIAC Hx Hypertension: Yes - MUSCULOSKELETAL/RHEUMATOLOGICAL Hx Falls: Yes (at home) - PSYCHIATRIC Hx Substance Use: No - SURGICAL HISTORY Hx Surgeries: No - ANESTHESIA Hx Anesthesia: No Meds Allergies/Adverse Reactions: Allergies Allergy/AdvReac Type Severity Reaction Status Date / Time No Known Allergies Allergy Verified 04/17/17 06:31 Results - Vital Signs Recent Vital Signs: Last Vital Signs Temp 97.6 F 07/24/18 18:00 Pulse 74 07/24/18 18:00 Resp 20 07/24/18 18:00 BP 135/66 07/24/18 18:00 Pulse Ox 97 07/24/18 18:00 - Labs Result Diagrams: 07/24/18 14:00 07/24/18 14:00 Labs: Laboratory Results - last 24 hr 07/24/18 07/24/18 07/24/18 13:05 14:00 14:00 WBC 13.3 H D RBC 4.10 Hgb 11.4 Hct 36.2 MCV 88.3 MCH 27.8 MCHC 31.5 L RDW 26.4 H Plt Count 412 H MPV 10.3 Neut % (Auto) 77.8 H Lymph % (Auto) 17.0 L Bee % (Auto) 4.4 Eos % (Auto) 0.4 Baso % (Auto) 0.4 Neut # (Auto) 10.4 H Lymph # (Auto) 2.3 Bee # (Auto) 0.6 Eos # (Auto) 0.1 Baso # (Auto) 0.0 pO2 16 L VBG pH 7.38 VBG pCO2 45 VBG HCO3 23.6 VBG Total CO2 28.0 VBG O2 Sat (Calc) 26.0 L VBG Base Excess 1.0 VBG Potassium 3.8 Sodium 139.0 135 Chloride 105.0 99 Glucose 95 Lactate 3.2 H Potassium 4.2 Carbon Dioxide 23 Anion Gap 18 BUN 22 H Creatinine 0.9 Est GFR ( Amer) > 60 Est GFR (Non-Af Amer) 60 Random Glucose 91 Calcium 9.9 Total Bilirubin 1.2 AST 88 H D ALT 26 Alkaline Phosphatase 70 Troponin I < 0.0120 Total Protein 9.6 H Albumin 5.1 H Globulin 4.4 H Albumin/Globulin Ratio 1.2 Venous Blood Potassium 3.8 Urine Color Urine Clarity Urine pH Ur Specific Jerome Urine Protein Urine Glucose (UA) Urine Ketones Urine Blood Urine Nitrate Urine Bilirubin Urine Urobilinogen Ur Leukocyte Esterase Urine WBC (Auto) Urine RBC (Auto) Urine Bacteria 07/24/18 14:04 WBC RBC Hgb Hct MCV MCH MCHC RDW Plt Count MPV Neut % (Auto) Lymph % (Auto) Bee % (Auto) Eos % (Auto) Baso % (Auto) Neut # (Auto) Lymph # (Auto) Bee # (Auto) Eos # (Auto) Baso # (Auto) pO2 VBG pH VBG pCO2 VBG HCO3 VBG Total CO2 VBG O2 Sat (Calc) VBG Base Excess VBG Potassium Sodium Chloride Glucose Lactate Potassium Carbon Dioxide Anion Gap BUN Creatinine Est GFR ( Amer) Est GFR (Non-Af Amer) Random Glucose Calcium Total Bilirubin AST ALT Alkaline Phosphatase Troponin I Total Protein Albumin Globulin Albumin/Globulin Ratio Venous Blood Potassium Urine Color Yellow Urine Clarity Clear Urine pH 7.0 Ur Specific Jerome 1.018 Urine Protein 1+ H Urine Glucose (UA) Normal Urine Ketones Negative Urine Blood Negative Urine Nitrate Negative Urine Bilirubin Negative Urine Urobilinogen 2.0 H Ur Leukocyte Esterase Neg Urine WBC (Auto) 2 Urine RBC (Auto) 1 Urine Bacteria Rare Assessment & Plan - Assessment and Plan (Free Text) Assessment: 1. 82 year old with acute RUQ LEUKOCTYTOSIS ELEVATED LACTATE CT ABD; DISTENDED BLADDER COLITIS SEEN BY SURGICAL TEAM IN ER, REVIWED THEIR NOTE AND SPOKE TO DR. MORGAN ADMIT NPO IVF ABX CLOSE MONITORING. SURGERY DOES NOT THINK SHE HAS ACUTE ABDOMEN BUT ruq still concerning so will keep nop she is comfortable now and is not septic Gi and DVT prophylaxis discussed with pt and son
[2018-07-24] MEDS ORDERED: Dextrose 5%/0.45% NS 1,000 ML IV ONE (19:30)
[2018-07-24] MEDS: Dextrose 5%/0.45% NS 1,000 ML IV SCH (19:31)
[2018-07-24 21:38] VITALS: RESP 20
[2018-07-25] MEDS: metroNIDAZOLE IV 250mg/50 ml 250 MG/50 ML BAG IVPB SCH ×3 (02:38→21:15)
[2018-07-25] MEDS: Dextrose 5%/0.45% NS 1,000 ML IV SCH ×3 (05:15→15:15)
[2018-07-25] MEDS: Ciprofloxacin 400mg/200ml D5W 400 MG/200 ML BAG IVPB SCH ×2 (08:02→21:16)
[2018-07-25 08:32] LABS: BLOOD UREA NITROGEN 10 mg/dL (7-17); CALCIUM 8.5 mg/dl (8.6-10.4); GFR NON-AFRICAN AMERICAN > 60
[2018-07-25 08:33] LABS: HEMOGLOBIN 9.9 g/dL (11.0-16.0); MEAN CELL VOLUME 87.2 fL (81.0-99.0); MEAN CORPUSCULAR HEMOGLOBIN 27.7 pg (27.0-31.0); MEAN CORPUSCULAR HGB CONC 31.8 g/dL (33.0-37.0); MEAN PLATELET VOLUME 9.6 fL (7.2-11.7); RBC 3.58 Mil/uL (3.80-5.20); RED CELL DISTRIBUTION WIDTH 26.1 % (11.5-14.5)
[2018-07-25 08:39] LABS: WHITE BLOOD COUNT 5.1 K/uL (4.8-10.8)
[2018-07-25] MEDS: Enoxaparin 40 mg Syringe SC SCH (11:02)
--- NOTE | 2018-07-25 11:34 | CP.PCM.PN ---
Subjective - Date & Time of Evaluation Date of Evaluation: 07/25/18 Time of Evaluation: 11:31 - Subjective Subjective: Surgical Progress Note for Dr. Friedman Patient seen and examined at bedside. She states that her right upper quadrant pain is improved from before but persistent. Patient states she has not had any further episodes of vomiting, she states her stools have been normal. She denies fevers, chills, headache, dizziness, chest pain, shortness of breath, palpitations, dysuria, leg pain or swelling. Objective - Vital Signs/Intake and Output Vital Signs (last 24 hours): Temp Pulse Resp BP Pulse Ox 98.5 F 59 L 20 119/52 L 95 07/25/18 07:46 07/25/18 07:46 07/25/18 07:46 07/25/18 07:46 07/25/18 07:46 Intake and Output: 07/25/18 07/25/18 06:59 18:59 Intake Total 1100 Output Total 0 Balance 1100 - Medications Medications: Current Medications Amlodipine Besylate (Norvasc) 5 mg PO DAILY [facility] Last Admin: 07/25/18 11:01 Dose: Not Given Enoxaparin Sodium (Lovenox) 40 mg SC DAILY [facility] Last Admin: 07/25/18 11:02 Dose: 40 mg Ciprofloxacin (Cipro 400mg/200ml Dsw) 400 mg in 200 mls @ 133 mls/hr IVPB Q12H [facility]; Protocol Last Admin: 07/25/18 08:02 Dose: 133 mls/hr Metronidazole (Flagyl) 250 mg in 50 mls @ 100 mls/hr IVPB Q8H [facility]; Protocol Stop: 07/30/18 03:01 Last Admin: 07/25/18 11:03 Dose: 100 mls/hr Dextrose/Sodium Chloride (Dextrose 5%/0.45% Ns 1000 Ml) 1,000 mls @ 100 mls/hr IV .Q10H [facility] Last Admin: 07/25/18 06:19 Dose: 100 mls/hr Influenza Virus Vaccine (Flucelvax Quad [id number] Syr) 60 mcg IM .ONCE ONE Stop: 07/26/18 10:01 Pantoprazole Sodium (Protonix Inj) 40 mg IVP DAILY [facility] Last Admin: 07/25/18 11:01 Dose: 40 mg Pneumococcal Polyvalent Vaccine (Pneumovax 23 Vaccine) 0.5 ml IM .ONCE ONE Stop: 07/26/18 22:01 - Labs Labs: 07/25/18 08:09 07/25/18 08:09 - Constitutional Appears: Well, Non-toxic, No Acute Distress - Head Exam Head Exam: ATRAUMATIC - Eye Exam Eye Exam: EOMI, PERRL - ENT Exam ENT Exam: Mucous Membranes Moist - Neck Exam Neck Exam: Full ROM. absent: Tenderness - Respiratory Exam Respiratory Exam: Clear to Ausculation Bilateral, NORMAL BREATHING PATTERN. absent: Rales, Rhonchi, Wheezes, Respiratory Distress - Cardiovascular Exam Cardiovascular Exam: REGULAR RHYTHM, +S1, +S2 - GI/Abdominal Exam GI & Abdominal Exam: Soft, Tenderness (Mild tenderness in right upper quadrant ), Normal Bowel Sounds. absent: Distended, Firm, Guarding, Rigid - Extremities Exam Extremities Exam: absent: Calf Tenderness, Pedal Edema - Back Exam Back Exam: absent: CVA tenderness (L), CVA tenderness (R) - Neurological Exam Neurological Exam: Alert, Oriented x3 - Psychiatric Exam Psychiatric exam: Normal Affect, Normal Mood - Skin Skin Exam: Dry, Intact, Warm Assessment and Plan - Assessment and Plan (Free Text) Assessment: 82 year old female with history of hypertension who presents for right upper quadrant pain. Plan: Abdomen US: Echogenic liver may be seen in setting of hepatic parenchymal disease or fatty infiltration. 1.1 cm hepatic cyst.Right renal cysts measuring up to 3.9 cm.Right renal cortical thinning. CBD 3mm. No gallstones. No gallbladder wall thickening or pericholecystic edema. Negative sonographic Kent's sign as assessed by the machine plate stacker CT abdomen/pelvis with IV contrast: Wall thickening/mucosal edema versus under distention of the colon. Correlate clinically for colitis. Partially imaged 15 mm soft tissue in the left breast may reflect normal breast tissue however given asymmetry recommend further evaluation with physical exam and dedicated breast imaging. Bilateral renal cysts as well as too small to characterize renal hypodensities which statistically are likely cysts. Gallbladder distension. Too small to characterize hepatic hypodensities; statistically likely cyst or hemangioma. Heterogeneous appearance of the uterus with coarse calcifications consistent with degenerating fibroids. Chronic appearing fracture deformity of the left pubic symphysis/pubic rami. HIDA scan normal HIDA scan. patent cystic duct. Stella Benedict, PGY1
--- NOTE | 2018-07-25 14:55 | NM ---
Date of service: 07/25/2018 PROCEDURE: Nuclear Medicine Hepatobiliary Scan HISTORY: RUQ abdominal pain COMPARISON: July 24, 2018. Abdominal ultrasound. TECHNIQUE: 5.4 mCi of technetium 99m Mebrofenin was administered intravenously. Planar images of the abdomen were obtained at 5 min intervals to 60 mins. Delayed images were also obtained. FINDINGS: LIVER: Timely and homogenous uptake. COMMON BILE DUCT: identified at 45 mins. GALLBLADDER: identified at 50 mins. SMALL BOWEL: Identified at 2 hr. IMPRESSION: Normal Hepatobiliary Scan. The cystic duct is patent.
[2018-07-25 18:12] LABS: HEMOGLOBIN 9.7 g/dL (11.0-16.0); MEAN CELL VOLUME 87.9 fL (81.0-99.0); MEAN CORPUSCULAR HEMOGLOBIN 27.8 pg (27.0-31.0); MEAN CORPUSCULAR HGB CONC 31.7 g/dL (33.0-37.0); MEAN PLATELET VOLUME 9.6 fL (7.2-11.7); RBC 3.5 Mil/uL (3.80-5.20); RED CELL DISTRIBUTION WIDTH 26.2 % (11.5-14.5); WHITE BLOOD COUNT 5.7 K/uL (4.8-10.8)
--- NOTE | 2018-07-25 19:22 | CP.PCM.PN ---
Subjective - Date & Time of Evaluation Date of Evaluation: 07/25/18 Time of Evaluation: 19:42 - Subjective Subjective: PT reports feeling better less pain ,but nurse states she did get pain meds earlier pt does reports feeling hungry Objective - Vital Signs/Intake and Output Vital Signs (last 24 hours): Temp Pulse Resp BP Pulse Ox 97.8 F 95 H 20 143/69 95 07/25/18 16:00 07/25/18 16:00 07/25/18 16:00 07/25/18 16:00 07/25/18 16:00 Intake and Output: 07/25/18 07/26/18 18:59 06:59 Intake Total 550 Balance 550 - Medications Medications: Current Medications Amlodipine Besylate (Norvasc) 5 mg PO DAILY [facility] Last Admin: 07/25/18 11:01 Dose: Not Given Enoxaparin Sodium (Lovenox) 40 mg SC DAILY [facility] Last Admin: 07/25/18 11:02 Dose: 40 mg Ciprofloxacin (Cipro 400mg/200ml Dsw) 400 mg in 200 mls @ 133 mls/hr IVPB Q12H [facility]; Protocol Last Admin: 07/25/18 08:02 Dose: 133 mls/hr Metronidazole (Flagyl) 250 mg in 50 mls @ 100 mls/hr IVPB Q8H [facility]; Protocol Stop: 07/30/18 03:01 Last Admin: 07/25/18 11:03 Dose: 100 mls/hr Dextrose/Sodium Chloride (Dextrose 5%/0.45% Ns 1000 Ml) 1,000 mls @ 100 mls/hr IV .Q10H [facility] Last Admin: 07/25/18 06:19 Dose: 100 mls/hr Influenza Virus Vaccine (Flucelvax Quad [id number] Syr) 60 mcg IM .ONCE ONE Stop: 07/26/18 10:01 Pantoprazole Sodium (Protonix Inj) 40 mg IVP DAILY [facility] Last Admin: 07/25/18 11:01 Dose: 40 mg Pneumococcal Polyvalent Vaccine (Pneumovax 23 Vaccine) 0.5 ml IM .ONCE ONE Stop: 07/26/18 22:01 - Labs Labs: 07/25/18 17:51 07/25/18 08:09 - Constitutional Appears: Non-toxic - Eye Exam Eye Exam: Normal appearance - ENT Exam ENT Exam: Mucous Membranes Moist - Respiratory Exam Respiratory Exam: Clear to Ausculation Bilateral - Cardiovascular Exam Cardiovascular Exam: REGULAR RHYTHM, RRR. absent: JVD - GI/Abdominal Exam GI & Abdominal Exam: Soft, Tenderness (less ruq tenderness) Assessment and Plan - Assessment and Plan (Free Text) Assessment: abd pain RUQ anemia; noticed drop in hemoglobin (Gi consulted) colitis htn; stable cont IVF Hida negative will start clear liquid as tolerated stool of occult blood and c dif. Pt's family at bed side , discussed case with patient and sons.
[2018-07-26] MEDS: Dextrose 5%/0.45% NS 1,000 ML IV SCH ×2 (01:15→11:15)
[2018-07-26] MEDS: metroNIDAZOLE IV 250mg/50 ml 250 MG/50 ML BAG IVPB SCH ×2 (02:44→10:54)
[2018-07-26 08:04] LABS: BASO % 0.8 % (0.0-2.0); EOS # 0.4 K/uL (0.0-0.7); EOS % 6.7 % (0.0-4.0); HEMOGLOBIN 10.8 g/dL (11.0-16.0); LYMPH # 3.2 K/uL (1.0-4.3); LYMPH % 54.3 % (20.0-40.0); MEAN CORPUSCULAR HEMOGLOBIN 28.3 pg (27.0-31.0); MEAN CORPUSCULAR HGB CONC 32.2 g/dL (33.0-37.0); MEAN PLATELET VOLUME 9.9 fL (7.2-11.7); MONO # 0.5 K/uL (0.0-0.8); MONO % 9.3 % (0.0-10.0); NEUT # 1.7 K/uL (1.8-7.0); NEUT % 28.9 % (50.0-75.0); NRBC % 0.5 % (0.0-2.0); RBC 3.82 Mil/uL (3.80-5.20); WHITE BLOOD COUNT 5.9 K/uL (4.8-10.8)
--- NOTE | 2018-07-26 08:15 | CP.PCM.PN ---
Subjective - Date & Time of Evaluation Date of Evaluation: 07/26/18 Time of Evaluation: 08:13 - Subjective Subjective: Surgical Progress Note for Dr. Henderson Patient seen and examined at bedside. She states that her right upper quadrant pain has improved. She denies vomiting, diarrhea. She states she has not had a bowel movement since her admission here. She states she has some phlegm in her throat and only experiences nausea then. She denies fevers, chills, headache, dizziness, chest pain, shortness of breath, palpitations. Objective - Vital Signs/Intake and Output Vital Signs (last 24 hours): Temp Pulse Resp BP Pulse Ox 97.9 F 64 20 129/51 L 96 07/26/18 00:00 07/26/18 00:00 07/26/18 00:00 07/26/18 00:00 07/26/18 00:00 Intake and Output: 07/26/18 07/26/18 06:59 18:59 Intake Total 2170 Output Total 500 Balance 1670 - Medications Medications: Current Medications Amlodipine Besylate (Norvasc) 5 mg PO DAILY [facility] Last Admin: 07/25/18 11:01 Dose: Not Given Enoxaparin Sodium (Lovenox) 40 mg SC DAILY [facility] Last Admin: 07/25/18 11:02 Dose: 40 mg Ciprofloxacin (Cipro 400mg/200ml Dsw) 400 mg in 200 mls @ 133 mls/hr IVPB Q12H [facility]; Protocol Last Admin: 07/25/18 21:16 Dose: 133 mls/hr Metronidazole (Flagyl) 250 mg in 50 mls @ 100 mls/hr IVPB Q8H [facility]; Protocol Stop: 07/30/18 03:01 Last Admin: 07/26/18 02:44 Dose: 100 mls/hr Dextrose/Sodium Chloride (Dextrose 5%/0.45% Ns 1000 Ml) 1,000 mls @ 100 mls/hr IV .Q10H [facility] Last Admin: 07/26/18 01:15 Dose: Not Given Influenza Virus Vaccine (Flucelvax Quad [id number] Syr) 60 mcg IM .ONCE ONE Stop: 07/26/18 10:01 Pantoprazole Sodium (Protonix Inj) 40 mg IVP DAILY [facility] Last Admin: 07/25/18 11:01 Dose: 40 mg Pneumococcal Polyvalent Vaccine (Pneumovax 23 Vaccine) 0.5 ml IM .ONCE ONE Stop: 07/26/18 22:01 Senna/Docusate Sodium (Senokot S 50 Mg-8.6 Mg) 1 tab PO BID [facility] - Labs Labs: 07/26/18 07:33 07/25/18 08:09 - Constitutional Appears: Well, No Acute Distress - Head Exam Head Exam: NORMOCEPHALIC - Eye Exam Eye Exam: EOMI, PERRL - ENT Exam ENT Exam: Mucous Membranes Moist - Neck Exam Neck Exam: Full ROM - Respiratory Exam Respiratory Exam: Clear to Ausculation Bilateral, NORMAL BREATHING PATTERN. absent: Rales, Rhonchi, Respiratory Distress, Stridor - Cardiovascular Exam Cardiovascular Exam: +S1, +S2. absent: Gallop, Rubs, Murmur - GI/Abdominal Exam GI & Abdominal Exam: Soft, Normal Bowel Sounds. absent: Distended, Firm, Guarding, Tenderness - Extremities Exam Extremities Exam: absent: Calf Tenderness, Pedal Edema - Neurological Exam Neurological Exam: Alert, Awake, Oriented x3 - Psychiatric Exam Psychiatric exam: Normal Affect, Normal Mood - Skin Skin Exam: Dry, Intact, Warm Assessment and Plan - Assessment and Plan (Free Text) Assessment: 82 year old female with history of hypertension who presents for right upper quadrant pain. Plan: Abdomen US: Echogenic liver may be seen in setting of hepatic parenchymal disease or fatty infiltration. 1.1 cm hepatic cyst.Right renal cysts measuring up to 3.9 cm.Right renal cortical thinning. CBD 3mm. No gallstones. No gallbladder wall thickening or pericholecystic edema. Negative sonographic Kent's sign as assessed by the nutrition services worker CT abdomen/pelvis with IV contrast: Wall thickening/mucosal edema versus under distention of the colon. Correlate clinically for colitis. Partially imaged 15 mm soft tissue in the left breast may reflect normal breast tissue however given asymmetry recommend further evaluation with physical exam and dedicated breast imaging. Bilateral renal cysts as well as too small to characterize renal hypodensities which statistically are likely cysts. Gallbladder distension. Too small to characterize hepatic hypodensities; statistically likely cyst or hemangioma. Heterogeneous appearance of the uterus with coarse calcifications consistent with degenerating fibroids. Chronic appearing fracture deformity of the left pubic symphysis/pubic rami. HIDA scan normal HIDA scan. patent cystic duct. No surgical intervention at this time Please reconsult if necessary Stella Benedict, PGY1
[2018-07-26] MEDS: Ciprofloxacin 400mg/200ml D5W 400 MG/200 ML BAG IVPB SCH (08:36)
[2018-07-26 08:37] LABS: ALB/GLOB RATIO 1.3 (1.0-2.1); ALBUMIN 4.4 g/dL (3.5-5.0); ALT/SGPT 77 U/L (9-52); AST/SGOT 54 U/L (14-36); BLOOD UREA NITROGEN 6 mg/dL (7-17); GFR NON-AFRICAN AMERICAN 60
[2018-07-26] MEDS ORDERED: Docusate-Senna 50 mg-8.6 mg Tab PO SCH (10:00)
[2018-07-26] MEDS ORDERED: Influenza Vaccine 60 mcg/0.5 mL SYR (4YR UP) IM ONE (10:00)
[2018-07-26] MEDS: Enoxaparin 40 mg Syringe SC SCH (10:56)
--- NOTE | 2018-07-26 15:14 | CP.PCM.CON ---
History of Present Illness - History of Present Illness History of Present Illness: This is an 82 year old woman with abdominal pain. Patient presented to the ER on 07/24/18 with sudden onset of RUQ pain for two hours. The pain was described as sharp/throbbing, associated with chills and lightheadedness, nausea, vomiting and two soft bowel movements. Evaluation in the ER included sonogram which showed an echogenic liver, and CT scan which showed distended GB, fibroids, umbilical hernia (containing only fat) and possible colonic wall thickening vs. under-distention. HIDA scan was normal. In the hospital the HGB declined form 11.4 to 9.7, but the most recent value from this morning is 10.8. she has not had any bowel movements since her arrival on the floor. At present, she denies having abdominal pain, chest pain, nausea, vomiting, heartburn, difficulty swallowing, diarrhea and rectal bleeding. Review of Systems - Constitutional Constitutional: Chills. absent: Fever, Headache - Cardiovascular Cardiovascular: absent: Chest Pain, Dyspnea, Palpitations - Respiratory Respiratory: absent: Cough, Dyspnea - Gastrointestinal Gastrointestinal: Abdominal Pain, Loose Stools, Nausea, Vomiting. absent: Dysphagia, Heartburn, Hematochezia - Genitourinary Genitourinary: absent: Dysuria - Musculoskeletal Musculoskeletal: absent: Back Pain Past Patient History - Past Medical History & Family History Past Medical History?: Yes - Past Social History Smoking Status: Never Smoked - CARDIAC Hx Hypertension: Yes - MUSCULOSKELETAL/RHEUMATOLOGICAL Hx Arthritis: Yes (BACK) - PSYCHIATRIC Hx Substance Use: No - SURGICAL HISTORY Hx Surgeries: No - ANESTHESIA Hx Anesthesia: No Meds Allergies/Adverse Reactions: Allergies Allergy/AdvReac Type Severity Reaction Status Date / Time No Known Allergies Allergy Verified 04/17/17 06:31 - Medications Medications: Current Medications Amlodipine Besylate (Norvasc) 5 mg PO DAILY [facility] Last Admin: 07/26/18 10:54 Dose: 5 mg Enoxaparin Sodium (Lovenox) 40 mg SC DAILY [facility] Last Admin: 07/26/18 10:56 Dose: 40 mg Ciprofloxacin (Cipro 400mg/200ml Dsw) 400 mg in 200 mls @ 133 mls/hr IVPB Q12H [facility]; Protocol Last Admin: 07/26/18 08:36 Dose: 133 mls/hr Metronidazole (Flagyl) 250 mg in 50 mls @ 100 mls/hr IVPB Q8H [facility]; Protocol Stop: 07/30/18 03:01 Last Admin: 07/26/18 10:54 Dose: 100 mls/hr Pantoprazole Sodium (Protonix Inj) 40 mg IVP DAILY [facility] Last Admin: 07/26/18 10:54 Dose: 40 mg Pneumococcal Polyvalent Vaccine (Pneumovax 23 Vaccine) 0.5 ml IM .ONCE ONE Stop: 07/26/18 22:01 Senna/Docusate Sodium (Senokot S 50 Mg-8.6 Mg) 1 tab PO BID [facility] Last Admin: 07/26/18 10:54 Dose: 1 tab Physical Exam - Constitutional Appears: No Acute Distress - Head Exam Head Exam: ATRAUMATIC, NORMOCEPHALIC - Eye Exam Eye Exam: EOMI, PERRL - Neck Exam Neck exam: Negative for: Lymphadenopathy, Thyromegaly - Respiratory Exam Respiratory Exam: NORMAL BREATHING PATTERN. absent: Rales, Rhonchi, Wheezes - Cardiovascular Exam Cardiovascular Exam: REGULAR RHYTHM, +S1, +S2. absent: Gallop, Rubs, Systolic Murmur - GI/Abdominal Exam GI & Abdominal Exam: Normal Bowel Sounds, Soft. absent: Mass, Organomegaly, Tenderness - Rectal Exam Rectal Exam: Deferred - Extremities Exam Extremities exam: Negative for: calf tenderness, pedal edema Results - Vital Signs Recent Vital Signs: Last Vital Signs Temp 98.6 F 07/26/18 07:40 Pulse 60 07/26/18 07:40 Resp 20 07/26/18 07:40 BP 139/58 L 07/26/18 07:40 Pulse Ox 94 L 07/26/18 07:40 - Labs Result Diagrams: 07/26/18 07:33 07/26/18 07:34 Labs: Laboratory Results - last 24 hr 07/25/18 07/26/18 07/26/18 17:51 06:35 07:33 WBC 5.7 5.9 RBC 3.50 L 3.82 Hgb 9.7 L 10.8 L Hct 30.7 L 33.6 L MCV 87.9 88.0 MCH 27.8 28.3 MCHC 31.7 L 32.2 L RDW 26.2 H 26.0 H Plt Count 366 426 H MPV 9.6 9.9 Neut % (Auto) 28.9 L Lymph % (Auto) 54.3 H Mellette % (Auto) 9.3 Eos % (Auto) 6.7 H Baso % (Auto) 0.8 Neut # (Auto) 1.7 L Lymph # (Auto) 3.2 Mellette # (Auto) 0.5 Eos # (Auto) 0.4 Baso # (Auto) 0.0 Sodium Potassium Chloride Carbon Dioxide Anion Gap BUN Creatinine Est GFR ( Amer) Est GFR (Non-Af Amer) Random Glucose Calcium Phosphorus Magnesium Ferritin Total Bilirubin AST ALT Alkaline Phosphatase Total Protein Albumin Globulin Albumin/Globulin Ratio Blood Type A POSITIVE Antibody Screen Negative 07/26/18 07:34 WBC RBC Hgb Hct MCV MCH MCHC RDW Plt Count MPV Neut % (Auto) Lymph % (Auto) Mellette % (Auto) Eos % (Auto) Baso % (Auto) Neut # (Auto) Lymph # (Auto) Mellette # (Auto) Eos # (Auto) Baso # (Auto) Sodium 138 Potassium 3.7 Chloride 101 Carbon Dioxide 28 Anion Gap 12 BUN 6 L Creatinine 0.9 Est GFR ( Amer) > 60 Est GFR (Non-Af Amer) 60 Random Glucose 98 Calcium 9.0 Phosphorus 3.6 Magnesium 1.8 Ferritin 248.0 Total Bilirubin 0.7 AST 54 H D ALT 77 H D Alkaline Phosphatase 72 Total Protein 7.9 Albumin 4.4 Globulin 3.5 Albumin/Globulin Ratio 1.3 Blood Type Antibody Screen Assessment & Plan (1) RUQ abdominal pain Assessment and Plan: Patient had an episode of RUQ pain which resolved spontaneously. Imaging studies including sonogram, CT scan and HIDA scan did not reveal a cause for the pain. CT scan was reported as showing possible colonic wall thickening, which was not impressive and may actually represent under-distention. She is anemic, HGB 10.8, with normal ferritin. Colonoscopy would be reasonable, if not done recently, and can be scheduled as an outpatient. Patient is stable for discharge from the GI standpoint. Status: Acute
[2018-07-26 16:24] VITALS: BP 126/76; PULSE 63; TEMP 97.7; O2SAT 98
--- NOTE | 2018-07-26 17:49 | CP.PCM.PN ---
Subjective - Date & Time of Evaluation Date of Evaluation: 07/26/18 Time of Evaluation: 17:49 - Subjective Subjective: alert, awake denies abdominal pain or distress. Objective - Vital Signs/Intake and Output Vital Signs (last 24 hours): Temp Pulse Resp BP Pulse Ox 97.7 F 63 20 126/76 98 07/26/18 16:00 07/26/18 16:00 07/26/18 16:00 07/26/18 16:00 07/26/18 16:00 Intake and Output: 07/26/18 07/26/18 06:59 18:59 Intake Total 2170 Output Total 500 Balance 1670 - Medications Medications: Current Medications Amlodipine Besylate (Norvasc) 5 mg PO DAILY [facility] Last Admin: 07/26/18 10:54 Dose: 5 mg Enoxaparin Sodium (Lovenox) 40 mg SC DAILY [facility] Last Admin: 07/26/18 10:56 Dose: 40 mg Ciprofloxacin (Cipro 400mg/200ml Dsw) 400 mg in 200 mls @ 133 mls/hr IVPB Q12H [facility]; Protocol Last Admin: 07/26/18 08:36 Dose: 133 mls/hr Metronidazole (Flagyl) 250 mg in 50 mls @ 100 mls/hr IVPB Q8H [facility]; Protocol Stop: 07/30/18 03:01 Last Admin: 07/26/18 10:54 Dose: 100 mls/hr Pantoprazole Sodium (Protonix Inj) 40 mg IVP DAILY [facility] Last Admin: 07/26/18 10:54 Dose: 40 mg Pneumococcal Polyvalent Vaccine (Pneumovax 23 Vaccine) 0.5 ml IM .ONCE ONE Stop: 07/26/18 22:01 Senna/Docusate Sodium (Senokot S 50 Mg-8.6 Mg) 1 tab PO BID [facility] Last Admin: 07/26/18 10:54 Dose: 1 tab - Labs Labs: 07/26/18 07:33 07/26/18 07:34 Assessment and Plan - Assessment and Plan (Free Text) Plan: 82 year old female admitted with abdominal pain, colitis, cleared by GI, seen and examined. Alert and orientedx3, denies any pain or distress, tolerating diet. Discussed with DR Tom, plan to discharge home with her son today. Advised to continue with present medications and follow up in the office in 1 week.
[2018-07-26 18:11] LABS: IRON 52 ug/dL (37-170)
[2018-07-26 18:21] LABS: % IRON SATURATION 18 (20-55); TOTAL IRON BINDING CAPACITY 292 ug/dL (250-450)
[2018-07-26] MEDS ORDERED: Pneumococcal 23-Valent Vaccine IM ONE (22:00)
== END 2018-07-26 18:12 | disposition home or self-care (01) ==
LOC: C.ER 12:16 → C.9E 18:07 → C.3T 19:58
PROVIDERS: ADMIT Internal Medicine; ATTEND Internal Medicine
DX: K52.9 Noninfective gastroenteritis and colitis, unspecified (principal); I10 Essential (primary) hypertension; Z86.73 Personal history of transient ischemic attack (TIA), and cerebral infarction without residual deficits; M81.0 Age-related osteoporosis without current pathological fracture; D64.9 Anemia, unspecified; R55 Syncope and collapse; F41.9 Anxiety disorder, unspecified
CPT/HCPCS: 36415; 74177; 76705; 78226; 80048; 80053; 81001; 82728; 82803; 83540; 83550; 83735; 84100; 84484; 85025; 85027; 86850; 86900; 86920; 87040; 96365; 96374; 97110; 97116; 97162; 97530; 99285; A9537; C9113; G0378; G8978; G8979; J0744; J1650; J2405; J7030; J7042; Q9967